=== PATIENT | female | born 1950 | race Hispanic/Latino ===

== ENCOUNTER 2018-04-09 12:07 | Inpatient (IN) | payer MEDICAID ==
[2018-04-09 19:10] VITALS: BMI 25.8
--- NOTE | 2018-04-10 00:32 | CP.PCM.HP ---
History of Present Illness - History of Present Illness History of Present Illness: PMD: Sanchez Zuniga MD Chief Complaint: Right facial palsy/slurred speech/Mechanical fall The Patient was seen and examined in the Rehab Unit HPI: The hx was obtained from the patient and after review of the medical records. She is a 67 years old female transferred from the [facility] to the [facility], for Continued care and rehabilitation. She has hx of HTN, HLD Recurrent CVA with right side weakness in 2013 and left side weakness in 2016 now with squeals. On this occasion she was admitted at the [facility] with slurred speech, right facial weakness and dizziness after a mechanical fall and diagnosed with Acute CVA with left side neurological findings. She still has dysarthria, word finding, numbness to the right face with weakness. The right upper extremity is numb. the right knee is tender to movement and palpation. PMH: CVA 2012 with right sided weakness; CVA 2016 with left lower extremity weakness persisting; HTN; HLD; CAD s/p Stent placement; sigmoid Polyps; Ascending Aortic Aneurysm; Right Pulmonary Nodules; Depression PSH: Tubal ligation; Right shoulder surgery; Tonsillectomy SH: Smokes Marijuana; No Alcohol; Smokes Cigar daily; Live alone; FH: States: No known family hx Allergies Medication: Reviewed Present on Admission - Present on Admission Any Indicators Present on Admission: No History of DVT/PE: No History of Uncontrolled Diabetes: No Urinary Catheter: No Decubitus Ulcer Present: No Review of Systems - Constitutional Constitutional: Weakness. absent: Headache, Lethargy - EENT Eyes: Requires Corrective Lenses. absent: Diplopia, Itchy Eyes Ears: Decreased Hearing. absent: Ear Discharge, Tinnitus Nose/Mouth/Throat: absent: Epistaxis, Nasal Congestion, Nasal Discharge, Sinus Pain, Sinus Pressure - Cardiovascular Cardiovascular: absent: Chest Pain, Dyspnea, Edema, Palpitations - Respiratory Respiratory: absent: Cough, Dyspnea, Wheezing, Stridor - Gastrointestinal Gastrointestinal: Constipation. absent: Abdominal Pain, Diarrhea, Nausea, Vomiting - Genitourinary Genitourinary: absent: Dysuria, Flank Pain, Urinary Frequency - Musculoskeletal Musculoskeletal: Arthralgias Additional comments: Pain to the right lower extremity - Integumentary Integumentary: absent: Skin Ulcer, Sores, Striae, Swelling - Neurological Neurological: Abnormal Gait, Abnormal Hearing, Abnormal Speech, Dizziness, Focal Weakness, Paresthesias, Weakness. absent: Confusion, Headaches - Psychiatric Psychiatric: Depression. absent: Anxiety, Panic Attacks - Endocrine Endocrine: absent: Palpitations, Polydipsia, Polyphagia, Polyuria - Hematologic/Lymphatic Hematologic: absent: Easy Bleeding, Easy Bruising Past Patient History - Past Medical History & Family History Past Medical History?: Yes - Past Social History Chewing Tobacco Use: No Cigar Use: No Alcohol: None Drugs: Cannabis Home Situation {Lives}: Alone - CARDIAC Hx Hypercholesterolemia: Yes Hx Hypertension: Yes Other/Comment: CAD s/p Stent X1 - PULMONARY Hx Respiratory Disorders: No - NEUROLOGICAL HX Cerebrovascular Accident: Yes (2012 and 2016) - HEENT Hx HEENT Problems: No - RENAL Hx Chronic Kidney Disease: No - ENDOCRINE/METABOLIC Hx Endocrine Disorders: No - HEMATOLOGICAL/ONCOLOGICAL Hx Blood Disorders: No - INTEGUMENTARY Hx Dermatological Problems: No - MUSCULOSKELETAL/RHEUMATOLOGICAL Hx Musculoskeletal Disorders: No - GASTROINTESTINAL Hx Gastrointestinal Disorders: No - GENITOURINARY/GYNECOLOGICAL Hx Genitourinary Disorders: No - PSYCHIATRIC Hx Depression: Yes - SURGICAL HISTORY Hx Tonsillectomy: Yes Hx Tubal Ligation: Yes Other/Comment: Right shoulder surgery - ANESTHESIA Hx Anesthesia: Yes Hx Anesthesia Reactions: No Meds Allergies/Adverse Reactions: Allergies Allergy/AdvReac Type Severity Reaction Status Date / Time No Known Allergies Allergy Verified 04/09/18 23:13 Physical Exam - Constitutional Appears: No Acute Distress - Head Exam Head Exam: ATRAUMATIC, NORMOCEPHALIC Additional comments: Right facial weakness. - Eye Exam Eye Exam: absent: EOMI, Normal appearance Additional comments: Left eye Ptosis, poor vision from the right eye - ENT Exam ENT Exam: Mucous Membranes Moist, Normal External Ear Exam - Neck Exam Neck exam: Positive for: Full Rom, Normal Inspection. Negative for: Lymphadenopathy, Tenderness - Respiratory Exam Respiratory Exam: Clear to Auscultation Bilateral. absent: Rales, Rhonchi, Wheezes - Cardiovascular Exam Cardiovascular Exam: REGULAR RHYTHM. absent: RRR, +S1, +S2 - GI/Abdominal Exam GI & Abdominal Exam: Normal Bowel Sounds, Soft. absent: Mass, Organomegaly, Tenderness - Rectal Exam Rectal Exam: Deferred - Extremities Exam Additional comments: Pain to the right knee and thigh. - Back Exam Back exam: NORMAL INSPECTION. absent: CVA tenderness (L), CVA tenderness (R) - Neurological Exam Neurological exam: Alert, Oriented x3 Additional comments: Right facial droop with tongue deviating to the right . decreased hearing on the right . Left eye ptosis with poor vision at the right eye. motor strength 2/5 at the right lower extremity. motor strength 5/5 at both upper extremities - Psychiatric Exam Psychiatric exam: Normal Affect, Normal Mood - Skin Skin Exam: Dry, Intact, Normal Color, Warm Results - Imaging and Cardiology CT scan - head Status: Report reviewed by me Additional comment: 04/08/21 Multiple chronic infarcts, including chronic posterior left occipital infarct which is new since the prior study. CT angio of head Status: Report reviewed by me Additional comment: 04/08/18 Multifocal intracranial atherosclerotic calcifications again seen. Involves the posterior cerebral arteries bilaterally where sites of severe focal stenosis are present. CT angio Neck Status: Report reviewed by me Additional comment: No evidence of large vessel occlusion of high grade stenosis involving the major arterial vessels of the neck with 0% stenosis at the IcA origin. 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 MRI - head Status: Report reviewed by me Additional comment: Subacute 1cm white matter infarction in the left العلي radiata. X-Ray right knee and hip Status: Report reviewed by me Additional comment: No Fracture Chest x-ray Status: Report reviewed by me Additional comment: 04/08/18 No acute disease Assessment & Plan - Assessment and Plan (Free Text) Assessment: #. Acute CVA #. HTN #. HLD #. depression #. Hx of CAD s/p LAD stent Plan: 67 years old female transferred from the [facility] to the [facility], for Continued care and rehabilitation. She has hx of HTN, HLD Recurrent CVA with right side weakness in 2013 and left side weakness in 2016 now with squeals. On this occasion she was admitted at the [facility] with slurred speech, right facial weakness and dizziness after a mechanical fall and diagnosed with Acute CVA with right side neurological findings. #. Acute CVA with dysarthria and right facial weakness, In patient with recurrent CVAs - Consult Physiatry Dr Orozco - OT/PT - Speech therapy - ASA - Plavix - Lipitor - Quit smoking/ no Marijuana nor Alcohol #. HTN - Amlodipine - Losartan - Follow Blood pressure #. HLD - Lipitor #. Depression - Wellbutrin #. Hx of CAD s/p LAD stent - ASA/Lipitor/Plavix #. DVT prophylaxis with Lovenox #. Code Status: Full - Date & Time Date: 04/10/18 Time: 00:32
[2018-04-10] MEDS ORDERED: Magnesium Hydroxide Susp 30 ml UD PO PRN (02:01)
[2018-04-10] MEDS ORDERED: Albuterol-Ipratrop 3 mg / 0.5 (3 ml) UD IH SCH (06:00)
[2018-04-10] MEDS: Pantoprazole 40 mg EC Tab PO SCH (06:17)
[2018-04-10 07:03] LABS: BASO # 0.1 K/uL (0.0-0.2); EOS # 0.2 K/uL (0.0-0.7); EOS % 3.5 % (0.0-4.0); HEMOGLOBIN 12.7 g/dL (12.0-16.0); LYMPH # 1.6 K/uL (1.0-4.3); LYMPH % 30.3 % (20.0-40.0); MEAN CELL VOLUME 83.5 fl (81.0-99.0); MEAN CORPUSCULAR HEMOGLOBIN 28.4 pg (27.0-31.0); MEAN PLATELET VOLUME 8.8 fl (7.2-11.7); MONO # 0.4 K/uL (0.0-0.8); MONO % 8.3 % (0.0-10.0); NEUT # 2.9 K/uL (1.8-7.0); NEUT % 55.9 % (50.0-75.0); NRBC % 0.1 % (0.0-0.0); RBC 4.47 Mil/uL (3.80-5.20); RED CELL DISTRIBUTION WIDTH 15.9 % (11.5-14.5); WHITE BLOOD COUNT 5.2 K/uL (4.8-10.8)
[2018-04-10 07:07] LABS: ALB/GLOB RATIO 1.4 (1.0-2.1); ALBUMIN 4.3 g/dL (3.5-5.0); ALT/SGPT 39 U/L (9-52); AST/SGOT 42 U/L (14-36); BLOOD UREA NITROGEN 8 mg/dl (7-17); CALCIUM 10.2 mg/dL (8.4-10.2); GFR AFRICAN-AMERICAN > 60; GFR NON-AFRICAN AMERICAN > 60
[2018-04-10 07:13] LABS: INR 1.1 (0.9-1.2); PARTIAL THROMBOPLASTIN TIME 36.9 Seconds (25.6-37.1); PROTHROMBIN TIME 12.1 Seconds (9.8-13.1)
[2018-04-10] MEDS: Albuterol-Ipratrop 3 mg / 0.5 (3 ml) UD IH SCH ×3 (07:14→19:23)
[2018-04-10] MEDS: Artificial Tears Opht Soln OU PRN (08:34)
[2018-04-10] MEDS: Aspirin 325 mg EC Tablets PO SCH (08:40)
[2018-04-10] MEDS: Enoxaparin 40 mg Syringe SC SCH (11:00)
--- NOTE | 2018-04-10 12:28 | CP.PCM.CON ---
History of Present Illness - History of Present Illness History of Present Illness: Psychiatry consult CC: Admitted to rehab for Right facial palsy/slurred speech/Mechanical fall; Depression HPI: 67 yo female transferred for [facility] [place] s/p acute CVA. Patient reports that she feels depressed due to her acute medical issues. She reports decreased appetite due to inability to taste food after having strokes. +Hopelessness +Anhedonia. She reports passive wishes that she were not alive , but denies active suicidal ideation/plan/intent. She does not recall what medications she was prescribed for depression and states that she has only been taking them since her admission to [facility]. PPHx: Denies h/o psychiatric admissions or suicide attempts PMH: CVA 2012 with right sided weakness; CVA 2016 with left lower extremity weakness persisting; HTN; HLD; CAD s/p Stent placement; sigmoid Polyps; Ascending Aortic Aneurysm; Right Pulmonary Nodules; Depression PSH: Tubal ligation; Right shoulder surgery; Tonsillectomy SH: Smokes Marijuana; No Alcohol; Smokes Cigar daily; Live alone FH: States: No known family hx Allergies: NKDA MSE: A + O x 3, calm, cooperative, psychomotor retarded due to physical limitations; speech slurred at times, mood "depressed", affect- constricted, thought process- linear/coherent, thought content- no delusions, NO AH/VH/SI/HI ; fair I/J Impression: 67 yo female s/p CVA, presents w/ major depressive disorder. She reports that she started treatment with antidepressants last week. -Would recommend to attempt treatment with monotherapy as this is her first time taking antidepressants (as per patient report). Would continue Zoloft 50 mg PO Daily and hold Wellbutrin. If patient does not improve after several weeks of treatment, can continue to titrate Zoloft. -No acute inpatient psychiatric admission indicated at this time Past Patient History - Past Medical History & Family History Past Medical History?: Yes - Past Social History Chewing Tobacco Use: No Cigar Use: No Alcohol: None Drugs: Cannabis Home Situation {Lives}: Alone - CARDIAC Hx Hypercholesterolemia: Yes Hx Hypertension: Yes Other/Comment: CAD s/p Stent X1 - PULMONARY Hx Respiratory Disorders: No - NEUROLOGICAL HX Cerebrovascular Accident: Yes (2012 and 2015) - HEENT Hx HEENT Problems: No - RENAL Hx Chronic Kidney Disease: No - ENDOCRINE/METABOLIC Hx Endocrine Disorders: No - HEMATOLOGICAL/ONCOLOGICAL Hx Blood Disorders: No - INTEGUMENTARY Hx Dermatological Problems: No - MUSCULOSKELETAL/RHEUMATOLOGICAL Hx Musculoskeletal Disorders: No - GASTROINTESTINAL Hx Gastrointestinal Disorders: No - GENITOURINARY/GYNECOLOGICAL Hx Genitourinary Disorders: No - PSYCHIATRIC Hx Depression: Yes - SURGICAL HISTORY Hx Tonsillectomy: Yes Hx Tubal Ligation: Yes Other/Comment: Right shoulder surgery - ANESTHESIA Hx Anesthesia: Yes Hx Anesthesia Reactions: No Meds Allergies/Adverse Reactions: Allergies Allergy/AdvReac Type Severity Reaction Status Date / Time No Known Allergies Allergy Verified 04/09/18 23:13 - Medications Medications: Current Medications Acetaminophen (Tylenol 325mg Tab) 325 mg PO Q6 PRN PRN Reason: Pain scale 1-10 Albuterol/Ipratropium (Duoneb 3 Mg/0.5 Mg (3 Ml) Ud) 3 ml IH RQ6 [facility] Last Admin: 04/10/18 07:14 Dose: 3 ml Artificial Tears (Artificial Tears) 2 drop OU HS PRN PRN Reason: Dry eyes Last Admin: 04/10/18 08:34 Dose: 2 drop Aspirin (Ecotrin) 325 mg PO DAILY [facility] Last Admin: 04/10/18 08:40 Dose: 325 mg Atorvastatin Calcium (Lipitor) 80 mg PO HS [facility] Bupropion HCl (Wellbutrin) 100 mg PO BID [facility] Last Admin: 04/10/18 08:40 Dose: 100 mg Clopidogrel Bisulfate (Plavix) 75 mg PO DAILY [facility] Last Admin: 04/10/18 08:40 Dose: 75 mg Enoxaparin Sodium (Lovenox) 40 mg SC DAILY [facility] PRN Reason: Protocol Losartan Potassium (Cozaar) 50 mg PO DAILY [facility] Last Admin: 04/10/18 08:39 Dose: 50 mg Magnesium Hydroxide (Milk Of Magnesia) 30 ml PO DAILY PRN PRN Reason: Constipation Ondansetron HCl (Zofran Tab) 4 mg PO Q8 PRN PRN Reason: Nausea/Vomiting Pantoprazole Sodium (Protonix Ec Tab) 40 mg PO 0630 [facility] Last Admin: 04/10/18 06:17 Dose: 40 mg Sennosides (Senokot Tab) 17.2 mg PO HS [facility] Sertraline HCl (Zoloft) 50 mg PO DAILY [facility] Last Admin: 04/10/18 08:41 Dose: 50 mg Results - Vital Signs Recent Vital Signs: Last Vital Signs Temp 97.3 F L 04/10/18 08:30 Pulse 74 04/10/18 08:39 Resp 18 04/10/18 08:30 BP 135/99 H 04/10/18 08:39 Pulse Ox 97 04/10/18 00:12 - Labs Result Diagrams: 04/10/18 06:30 04/10/18 06:30 Labs: Laboratory Results - last 24 hr 04/10/18 04/10/18 04/10/18 06:30 06:30 06:30 WBC 5.2 RBC 4.47 Hgb 12.7 Hct 37.4 MCV 83.5 MCH 28.4 MCHC 34.0 RDW 15.9 H Plt Count 216 MPV 8.8 Neut % (Auto) 55.9 Lymph % (Auto) 30.3 [place] % (Auto) 8.3 Eos % (Auto) 3.5 Baso % (Auto) 2.0 Neut # (Auto) 2.9 Lymph # (Auto) 1.6 [place] # (Auto) 0.4 Eos # (Auto) 0.2 Baso # (Auto) 0.1 PT 12.1 INR 1.1 APTT 36.9 Sodium 142 Potassium 3.5 L Chloride 107 Carbon Dioxide 25 Anion Gap 14 BUN 8 Creatinine 0.8 Est GFR ( Amer) > 60 Est GFR (Non-Af Amer) > 60 Random Glucose 114 H Calcium 10.2 Phosphorus 3.9 Magnesium 1.8 Total Bilirubin 0.9 AST 42 H ALT 39 Alkaline Phosphatase 91 Total Protein 7.5 Albumin 4.3 Globulin 3.2 Albumin/Globulin Ratio 1.4
[2018-04-10] MEDS ORDERED: Potassium Chloride 20 mEq ER Tab PO ONE (17:53)
--- NOTE | 2018-04-10 18:39 | CP.PCM.CON ---
History of Present Illness - History of Present Illness History of Present Illness: 67 year old female admitted with diagnosis of CVA with right sided weakness Review of Systems - Neurological Neurological: Abnormal Gait, Lack of Coordination, Weakness Past Patient History - Past Medical History & Family History Past Medical History?: Yes - Past Social History Chewing Tobacco Use: No Cigar Use: No Alcohol: None Drugs: Cannabis Home Situation {Lives}: Alone - CARDIAC Hx Cardiac Disorders: Yes Hx Hypercholesterolemia: Yes Hx Hypertension: Yes - PULMONARY Hx Respiratory Disorders: No - NEUROLOGICAL HX Cerebrovascular Accident: Yes - HEENT Hx HEENT Problems: No - RENAL Hx Chronic Kidney Disease: No - ENDOCRINE/METABOLIC Hx Endocrine Disorders: No - HEMATOLOGICAL/ONCOLOGICAL Hx Blood Disorders: No - INTEGUMENTARY Hx Dermatological Problems: No - MUSCULOSKELETAL/RHEUMATOLOGICAL Hx Musculoskeletal Disorders: No - GASTROINTESTINAL Hx Gastrointestinal Disorders: No - GENITOURINARY/GYNECOLOGICAL Hx Genitourinary Disorders: No - PSYCHIATRIC Hx Depression: Yes - SURGICAL HISTORY Hx Tonsillectomy: Yes Hx Tubal Ligation: Yes Other/Comment: Right shoulder surgery - ANESTHESIA Hx Anesthesia: Yes Hx Anesthesia Reactions: No Meds Allergies/Adverse Reactions: Allergies Allergy/AdvReac Type Severity Reaction Status Date / Time No Known Allergies Allergy Verified 04/09/18 23:13 - Medications Medications: Current Medications Acetaminophen (Tylenol 325mg Tab) 325 mg PO Q6 PRN PRN Reason: Pain scale 1-10 Albuterol/Ipratropium (Duoneb 3 Mg/0.5 Mg (3 Ml) Ud) 3 ml IH RQ6 [facility] Last Admin: 04/10/18 13:17 Dose: Not Given Artificial Tears (Artificial Tears) 2 drop OU HS PRN PRN Reason: Dry eyes Last Admin: 04/10/18 08:34 Dose: 2 drop Aspirin (Ecotrin) 325 mg PO DAILY [facility] Last Admin: 04/10/18 08:40 Dose: 325 mg Atorvastatin Calcium (Lipitor) 80 mg PO HS [facility] Clopidogrel Bisulfate (Plavix) 75 mg PO DAILY [facility] Last Admin: 04/10/18 08:40 Dose: 75 mg Enoxaparin Sodium (Lovenox) 40 mg SC DAILY [facility] PRN Reason: Protocol Last Admin: 04/10/18 11:00 Dose: 40 mg Losartan Potassium (Cozaar) 50 mg PO DAILY [facility] Last Admin: 04/10/18 08:39 Dose: 50 mg Magnesium Hydroxide (Milk Of Magnesia) 30 ml PO DAILY PRN PRN Reason: Constipation Ondansetron HCl (Zofran Tab) 4 mg PO Q8 PRN PRN Reason: Nausea/Vomiting Pantoprazole Sodium (Protonix Ec Tab) 40 mg PO 0630 [facility] Last Admin: 04/10/18 06:17 Dose: 40 mg Sennosides (Senokot Tab) 17.2 mg PO [facility] Sertraline HCl (Zoloft) 50 mg PO DAILY [facility] Last Admin: 04/10/18 08:41 Dose: 50 mg Physical Exam - Head Exam Head Exam: ATRAUMATIC, NORMAL INSPECTION, NORMOCEPHALIC - Eye Exam Eye Exam: EOMI, Normal appearance Pupil Exam: NORMAL ACCOMODATION, PERRL Additional comments: right facial muscle weakness - ENT Exam ENT Exam: Mucous Membranes Moist, Normal Exam - Neck Exam Neck exam: Positive for: Normal Inspection - Respiratory Exam Respiratory Exam: Clear to Auscultation Bilateral, NORMAL BREATHING PATTERN - Cardiovascular Exam Cardiovascular Exam: REGULAR RHYTHM - GI/Abdominal Exam GI & Abdominal Exam: Normal Bowel Sounds, Soft - Rectal Exam Rectal Exam: NORMAL INSPECTION - Exam External exam: NORMAL EXTERNAL EXAM - Extremities Exam Extremities exam: Positive for: normal inspection Additional comments: right upper and lower extremity weakness - Back Exam Back exam: NORMAL INSPECTION - Neurological Exam Neurological exam: Alert, Reflexes Normal Additional comments: facial nerve lesion - Psychiatric Exam Psychiatric exam: Normal Affect - Skin Skin Exam: Dry, Normal Color Results - Vital Signs Recent Vital Signs: Last Vital Signs Temp 97.3 F L 04/10/18 08:30 Pulse 74 04/10/18 08:39 Resp 18 04/10/18 08:30 BP 135/99 H 04/10/18 08:39 Pulse Ox 97 04/10/18 00:12 - Labs Result Diagrams: 04/10/18 06:30 04/10/18 06:30 Labs: Laboratory Results - last 24 hr 04/10/18 04/10/18 04/10/18 06:30 06:30 06:30 WBC 5.2 RBC 4.47 Hgb 12.7 Hct 37.4 MCV 83.5 MCH 28.4 MCHC 34.0 RDW 15.9 H Plt Count 216 MPV 8.8 Neut % (Auto) 55.9 Lymph % (Auto) 30.3 [place] % (Auto) 8.3 Eos % (Auto) 3.5 Baso % (Auto) 2.0 Neut # (Auto) 2.9 Lymph # (Auto) 1.6 [place] # (Auto) 0.4 Eos # (Auto) 0.2 Baso # (Auto) 0.1 PT 12.1 INR 1.1 APTT 36.9 Sodium 142 Potassium 3.5 L Chloride 107 Carbon Dioxide 25 Anion Gap 14 BUN 8 Creatinine 0.8 Est GFR ( Amer) > 60 Est GFR (Non-Af Amer) > 60 Random Glucose 114 H Calcium 10.2 Phosphorus 3.9 Magnesium 1.8 Total Bilirubin 0.9 AST 42 H ALT 39 Alkaline Phosphatase 91 Total Protein 7.5 Albumin 4.3 Globulin 3.2 Albumin/Globulin Ratio 1.4 Assessment & Plan (1) CVA (cerebral vascular accident) Assessment and Plan: also with diagnosis of HTn, HLD,asthma, CAd, NV plan for Physical, oocupational therapy , speech and rec therapy to write overall plan of care covering for Dr Orozco Status: Acute
--- NOTE | 2018-04-10 18:45 | PCM.OPOC ---
Physiatry Overall Plan of Care - Overall Plan of Care Estimated Length of Stay in Weeks: 3 Rehab Impairment: Mobility, Gait, Cognition, Balance, Coordination Etiologic Diagnosis: Cerebrovascular Accident - Anticipated Interventions Physical Therapy:: Yes Occupational Therapy:: Yes Speech Therapy:: Yes Recreational Therapy:: Yes - Therapy Goals Bed Mobility: Independent Ambulation: Independent Functional Positional Changes:: Independent - Functional Outcomes Functional Outcomes: fair - Discharge Plan Identification of Barriers to Discharge: Home Situation Discharge Destination: Home
[2018-04-11] MEDS: Albuterol-Ipratrop 3 mg / 0.5 (3 ml) UD IH SCH ×4 (01:03→19:52)
[2018-04-11] MEDS: Pantoprazole 40 mg EC Tab PO SCH (05:53)
[2018-04-11] MEDS: Enoxaparin 40 mg Syringe SC SCH (08:51)
[2018-04-11] MEDS: Artificial Tears Opht Soln OU PRN (08:51)
[2018-04-11] MEDS: Aspirin 325 mg EC Tablets PO SCH (08:52)
[2018-04-12] MEDS: Albuterol-Ipratrop 3 mg / 0.5 (3 ml) UD IH SCH ×4 (01:00→19:07)
[2018-04-12 07:21] LABS: BLOOD UREA NITROGEN 9 mg/dl (7-17); CALCIUM 9.8 mg/dL (8.4-10.2); GFR AFRICAN-AMERICAN > 60; GFR NON-AFRICAN AMERICAN > 60
[2018-04-12] MEDS: Pantoprazole 40 mg EC Tab PO SCH (07:35)
[2018-04-12] MEDS: Artificial Tears Opht Soln OU PRN (08:58)
[2018-04-12] MEDS: Enoxaparin 40 mg Syringe SC SCH (08:59)
[2018-04-12] MEDS: Aspirin 325 mg EC Tablets PO SCH (08:59)
--- NOTE | 2018-04-12 09:08 | RAD ---
PROCEDURE: Right Knee Radiographs. HISTORY: c/o discomfort on right knee COMPARISON: None. FINDINGS: BONES: No evidence of acute fracture or destructive bony lesion. JOINTS: Mild osteoarthritic changes noted. JOINT EFFUSION: No evidence of significant joint effusion OTHER FINDINGS: Vascular calcification and mild soft tissue swelling noted. IMPRESSION: Mild osteoarthritic changes. No evidence of acute fracture or dislocation.
--- NOTE | 2018-04-12 15:54 | CP.PCM.PN ---
Subjective - Date & Time of Evaluation Date of Evaluation: 04/11/18 Time of Evaluation: 10:00 - Subjective Subjective: no acute complaint at present Objective - Vital Signs/Intake and Output Vital Signs (last 24 hours): Temp Pulse Resp BP Pulse Ox 97.1 F L 89 20 132/95 H 100 04/12/18 08:00 04/12/18 08:59 04/12/18 08:00 04/12/18 08:59 04/12/18 08:00 - Medications Medications: Current Medications Acetaminophen (Tylenol 325mg Tab) 650 mg PO Q6 PRN PRN Reason: Pain scale 1-10 Last Admin: 04/10/18 21:21 Dose: 650 mg Albuterol/Ipratropium (Duoneb 3 Mg/0.5 Mg (3 Ml) Ud) 3 ml IH RQ6 [facility] Last Admin: 04/12/18 14:52 Dose: Not Given Artificial Tears (Artificial Tears) 2 drop OU HS PRN PRN Reason: Dry eyes Last Admin: 04/12/18 08:58 Dose: 2 drop Aspirin (Ecotrin) 325 mg PO DAILY [facility] Last Admin: 04/12/18 08:59 Dose: 325 mg Atorvastatin Calcium (Lipitor) 80 mg PO HS [facility] Last Admin: 04/11/18 21:30 Dose: 80 mg Clopidogrel Bisulfate (Plavix) 75 mg PO DAILY [facility] Last Admin: 04/12/18 08:59 Dose: 75 mg Enoxaparin Sodium (Lovenox) 40 mg SC DAILY [facility] PRN Reason: Protocol Last Admin: 04/12/18 08:59 Dose: 40 mg Losartan Potassium (Cozaar) 50 mg PO DAILY [facility] Last Admin: 04/12/18 08:59 Dose: 50 mg Magnesium Hydroxide (Milk Of Magnesia) 30 ml PO DAILY PRN PRN Reason: Constipation Ondansetron HCl (Zofran Tab) 4 mg PO Q8 PRN PRN Reason: Nausea/Vomiting Pantoprazole Sodium (Protonix Ec Tab) 40 mg PO 0630 [facility] Last Admin: 04/12/18 07:35 Dose: 40 mg Sennosides (Senokot Tab) 17.2 mg PO HS [facility] Last Admin: 04/11/18 21:33 Dose: 17.2 mg Sertraline HCl (Zoloft) 50 mg PO DAILY [facility] Last Admin: 04/12/18 09:00 Dose: 50 mg - Labs Labs: 04/10/18 06:30 04/12/18 05:30 PT 12.1 Seconds (9.8-13.1) 04/10/18 06:30 INR 1.1 (0.9-1.2) 04/10/18 06:30 APTT 36.9 Seconds (25.6-37.1) 04/10/18 06:30 - Head Exam Head Exam: ATRAUMATIC, NORMAL INSPECTION, NORMOCEPHALIC - Eye Exam Eye Exam: EOMI, Normal appearance Pupil Exam: NORMAL ACCOMODATION, PERRL - ENT Exam ENT Exam: Mucous Membranes Moist, Normal Exam - Neck Exam Neck Exam: Full ROM, Normal Inspection - Respiratory Exam Respiratory Exam: Clear to Ausculation Bilateral, NORMAL BREATHING PATTERN - Cardiovascular Exam Cardiovascular Exam: REGULAR RHYTHM - GI/Abdominal Exam GI & Abdominal Exam: Soft, Normal Bowel Sounds - Rectal Exam Rectal Exam: NORMAL INSPECTION - Exam External exam: NORMAL EXTERNAL EXAM - Extremities Exam Extremities Exam: Full ROM, Normal Capillary Refill, Normal Inspection - Back Exam Back Exam: NORMAL INSPECTION - Neurological Exam Neurological Exam: Alert, Awake Neuro motor strength exam: Right Upper Extremity: 3, Right Lower Extremity: 3 - Psychiatric Exam Psychiatric exam: Normal Affect, Normal Mood - Skin Skin Exam: Dry, Normal Color Assessment and Plan (1) CVA (cerebral vascular accident) Assessment & Plan: plan for physical, occupational, rec and speech therapy for range of motion, strengthening, transfers and gait training Status: Acute
[2018-04-13] MEDS: Albuterol-Ipratrop 3 mg / 0.5 (3 ml) UD IH SCH ×5 (01:08→19:11)
[2018-04-13 06:24] LABS: HEMOGLOBIN 11.7 g/dL (12.0-16.0); MEAN CELL VOLUME 84.5 fl (81.0-99.0); MEAN CORPUSCULAR HGB CONC 34.3 g/dL (33.0-37.0); RBC 4.05 Mil/uL (3.80-5.20); WHITE BLOOD COUNT 4.5 K/uL (4.8-10.8)
[2018-04-13] MEDS: Pantoprazole 40 mg EC Tab PO SCH (06:50)
[2018-04-13] MEDS: Aspirin 325 mg EC Tablets PO SCH (08:14)
[2018-04-13] MEDS: Enoxaparin 40 mg Syringe SC SCH (08:14)
--- NOTE | 2018-04-13 12:24 | CP.PCM.PN ---
Subjective - Date & Time of Evaluation Date of Evaluation: 04/13/18 Time of Evaluation: 12:30 - Subjective Subjective: Patient seen and examined . Sitting in chair in NAD. With flat affect.Complains of complete sensory loss to her right side, taste loss, and uncontrolled tremors to her upper extremities and lower extremities Participating with PT. Hemodynamically stable, afebrile. No acute issues overnight. Objective - Vital Signs/Intake and Output Vital Signs (last 24 hours): Temp Pulse Resp BP Pulse Ox 98.1 F 79 18 153/56 H 99 04/13/18 07:51 04/13/18 08:14 04/13/18 07:51 04/13/18 08:14 04/12/18 20:00 - Medications Medications: Current Medications Acetaminophen (Tylenol 325mg Tab) 650 mg PO Q6 PRN PRN Reason: Pain scale 1-10 Last Admin: 04/10/18 21:21 Dose: 650 mg Albuterol/Ipratropium (Duoneb 3 Mg/0.5 Mg (3 Ml) Ud) 3 ml IH RQ6 [facility] Last Admin: 04/13/18 08:15 Dose: Not Given Artificial Tears (Artificial Tears) 2 drop OU HS PRN PRN Reason: Dry eyes Last Admin: 04/12/18 08:58 Dose: 2 drop Aspirin (Ecotrin) 325 mg PO DAILY [facility] Last Admin: 04/13/18 08:14 Dose: 325 mg Atorvastatin Calcium (Lipitor) 80 mg PO HS [facility] Last Admin: 04/12/18 21:38 Dose: 80 mg Clopidogrel Bisulfate (Plavix) 75 mg PO DAILY [facility] Last Admin: 04/13/18 08:14 Dose: 75 mg Enoxaparin Sodium (Lovenox) 40 mg SC DAILY [facility] PRN Reason: Protocol Last Admin: 04/13/18 08:14 Dose: 40 mg Losartan Potassium (Cozaar) 50 mg PO DAILY [facility] Last Admin: 04/13/18 08:14 Dose: 50 mg Magnesium Hydroxide (Milk Of Magnesia) 30 ml PO DAILY PRN PRN Reason: Constipation Ondansetron HCl (Zofran Tab) 4 mg PO Q8 PRN PRN Reason: Nausea/Vomiting Pantoprazole Sodium (Protonix Ec Tab) 40 mg PO 0630 [facility] Last Admin: 04/13/18 06:50 Dose: 40 mg Sennosides (Senokot Tab) 17.2 mg PO HS [facility] Last Admin: 04/12/18 21:39 Dose: Not Given Sertraline HCl (Zoloft) 50 mg PO DAILY [facility] Last Admin: 04/13/18 08:14 Dose: 50 mg - Labs Labs: 04/13/18 05:25 04/12/18 05:30 PT 12.1 Seconds (9.8-13.1) 04/10/18 06:30 INR 1.1 (0.9-1.2) 04/10/18 06:30 APTT 36.9 Seconds (25.6-37.1) 04/10/18 06:30 - Constitutional Appears: Non-toxic, No Acute Distress, Chronically Ill - Head Exam Head Exam: ATRAUMATIC, NORMAL INSPECTION, NORMOCEPHALIC - Eye Exam Eye Exam: Normal appearance, PERRL - ENT Exam ENT Exam: Mucous Membranes Moist, Normal Exam - Neck Exam Neck Exam: Normal Inspection - Respiratory Exam Respiratory Exam: Clear to Ausculation Bilateral, NORMAL BREATHING PATTERN. absent: Rhonchi, Wheezes - Cardiovascular Exam Cardiovascular Exam: REGULAR RHYTHM, RRR, +S1, +S2. absent: JVD - GI/Abdominal Exam GI & Abdominal Exam: Soft, Normal Bowel Sounds. absent: Distended, Guarding, Tenderness, Rebound - Rectal Exam Rectal Exam: Deferred - Extremities Exam Extremities Exam: Normal Capillary Refill, Normal Inspection. absent: Calf Tenderness, Pedal Edema - Back Exam Back Exam: NORMAL INSPECTION - Neurological Exam Neurological Exam: Alert, Awake Additional comments: right side sensory loss right facial droop resting tremors - Psychiatric Exam Psychiatric exam: Flat Affect - Skin Skin Exam: Dry, Intact, Normal Color, Warm Assessment and Plan - Assessment and Plan (Free Text) Assessment: 67 years old female transferred from the [facility], for Continued care and rehabilitation. She has hx of HTN, HLD Recurrent CVA with right side weakness in 2012 and left side weakness in 2016 On this occasion she was admitted at the [facility] with slurred speech, right facial weakness and dizziness after a mechanical fall and diagnosed with Acute CVA with right side neurological findings. At present complains of sensory loss on right side and lack of taste 1. Acute CVA with dysarthria and right facial weakness--recurrent CVAs Continue PT/T/speech therapy Physiatry consult with Dr Orozco on board Continue ASa, plavix, statin BP control call neuro eval with for uncontrolled tremors 2. HTN controlled on Amlodipine,Losartan 3. HLD Lipitor 4. Depression on zoloft 5. Hx of CAD s/p LAD stent on ASA/Lipitor/Plavix 6. DVT prophylaxis Lovenox
[2018-04-13] MEDS ORDERED: Nasal Spray(Ocean spray) NAS PRN (21:05)
[2018-04-14] MEDS: Albuterol-Ipratrop 3 mg / 0.5 (3 ml) UD IH SCH ×4 (01:00→19:35)
[2018-04-14] MEDS: Pantoprazole 40 mg EC Tab PO SCH (06:06)
[2018-04-14] MEDS: Enoxaparin 40 mg Syringe SC SCH (08:09)
[2018-04-14] MEDS: Aspirin 325 mg EC Tablets PO SCH (08:10)
--- NOTE | 2018-04-14 12:34 | CP.PCM.PN ---
Subjective - Date & Time of Evaluation Date of Evaluation: 04/14/18 Time of Evaluation: 12:34 - Subjective Subjective: pt participating in PT well no complaints no cp, sob, calf tenderness hd stable nad Objective - Vital Signs/Intake and Output Vital Signs (last 24 hours): Temp Pulse Resp BP Pulse Ox 98.1 F 69 20 135/92 H 96 04/14/18 09:00 04/14/18 09:00 04/14/18 09:00 04/14/18 09:00 04/13/18 20:30 Intake and Output: Vitals Reviewed GEN: WDWN, alert, cooperative HEENT: NCAT, PERRL, EOMI HEART: RRR, +S1S2, NO MRG LUNG: CTAB, NO WRR ABD: soft, NT, ND, No HSM, No masses EXT: normal pedal pulses, normal capillary refill NEURO: awake, alert SKIN: warm, dry PSYCH: normal mood, normal affect - Medications Medications: Current Medications Acetaminophen (Tylenol 325mg Tab) 650 mg PO Q6 PRN PRN Reason: Pain scale 1-10 Last Admin: 04/10/18 21:21 Dose: 650 mg Albuterol/Ipratropium (Duoneb 3 Mg/0.5 Mg (3 Ml) Ud) 3 ml IH RQ6 [facility] Last Admin: 04/14/18 07:24 Dose: Not Given Artificial Tears (Artificial Tears) 2 drop OU HS PRN PRN Reason: Dry eyes Last Admin: 04/12/18 08:58 Dose: 2 drop Aspirin (Ecotrin) 325 mg PO DAILY [facility] Last Admin: 04/14/18 08:10 Dose: 325 mg Atorvastatin Calcium (Lipitor) 80 mg PO HS [facility] Last Admin: 04/13/18 21:15 Dose: 80 mg Clopidogrel Bisulfate (Plavix) 75 mg PO DAILY [facility] Last Admin: 04/14/18 08:13 Dose: 75 mg Enoxaparin Sodium (Lovenox) 40 mg SC DAILY [facility] PRN Reason: Protocol Last Admin: 04/14/18 08:09 Dose: 40 mg Losartan Potassium (Cozaar) 50 mg PO DAILY [facility] Last Admin: 04/14/18 08:10 Dose: 50 mg Magnesium Hydroxide (Milk Of Magnesia) 30 ml PO DAILY PRN PRN Reason: Constipation Ondansetron HCl (Zofran Tab) 4 mg PO Q8 PRN PRN Reason: Nausea/Vomiting Pantoprazole Sodium (Protonix Ec Tab) 40 mg PO 0630 [facility] Last Admin: 04/14/18 06:06 Dose: 40 mg Sennosides (Senokot Tab) 17.2 mg PO HS [facility] Last Admin: 04/13/18 21:16 Dose: Not Given Sertraline HCl (Zoloft) 50 mg PO DAILY [facility] Last Admin: 04/14/18 08:13 Dose: 50 mg Sodium Chloride ([place] Nasal [place]) 2 sprays ELSIE Q4 PRN PRN Reason: Nasal congestion Last Admin: 04/13/18 21:49 Dose: 2 spr - Labs Labs: 04/13/18 05:25 04/12/18 05:30 PT 12.1 Seconds (9.8-13.1) 04/10/18 06:30 INR 1.1 (0.9-1.2) 04/10/18 06:30 APTT 36.9 Seconds (25.6-37.1) 04/10/18 06:30 Assessment and Plan - Assessment and Plan (Free Text) Plan: 67 years old female transferred from the [facility] to the [facility], for Continued care and rehabilitation. She has hx of HTN, HLD Recurrent CVA with right side weakness in 2012 and left side weakness in 2016 On this occasion she was admitted at the [facility] with slurred speech, right facial weakness and dizziness after a mechanical fall and diagnosed with Acute CVA with right side neurological findings. At present complains of sensory loss on right side and lack of taste 1. Acute CVA with dysarthria and right facial weakness--recurrent CVAs Continue PT/T/speech therapy Physiatry consult with Dr Orozco on board Continue ASA, plavix, statin BP control Neuro eval with for uncontrolled tremors 2. HTN controlled on Amlodipine, Losartan 3. HLD Lipitor 4. Depression on zoloft 5. Hx of CAD s/p LAD stent on ASA/Lipitor/Plavix 6. DVT prophylaxis Lovenox
--- NOTE | 2018-04-14 13:23 | PSY.TMCNF ---
Nursing - Vital Signs Vital Signs (Last 8 hours): Vital Signs 04/14/18 04/14/18 04/14/18 08:02 08:10 09:00 Temperature 98.1 F 98.1 F Pulse Rate 69 69 69 Respiratory 20 20 Rate Blood Pressure 135/92 H 135/92 H 135/92 H Pain: 0 - Medications/Other Issues Comment: Hand tremors, Emotional - Consults Comment: Dr. Otero, Dr. Orozco - Toileting Toileting: Contact Guard - Bladder Management Bladder Pattern: Normal Voiding Method: Toilet Bladder Management: Supervision - Bowel Management Bowel Pattern: Normal Bowel Management: Supervision - Transfers Transfers: Contact Guard - ADL's ADL's: Minimal Assistance - Pain Management Comments: Denies pain - Patient/Family Teaching Comments: Safety, Post CVA care - Goals/Time Frame Comments: Per multidiscplinary team Physical Therapy - Bed Mobility Bed Mobility: Contact Guard - Transfers Wheelchair to Mat: Verbal Cues, Contact Guard Sit to Stand: Verbal Cues, Contact Guard - Ambulation Level of Assistance: Verbal Cues, Contact Guard Distance (ft.): 120 Assistive Devices: Rolling Walker - Stair Negotiation Stairs: Level of Assistance: Verbal Cues, Contact Guard, Minimal Assistance Number of Stairs: 6 Handrails: Bilateral - Standing Balance Static Stand: Contact Guard Assist Dynamic Stand: Minimal Assistance - Pain Pain (assessed during therapy session): 3 Management Techniques: Distraction, Relaxation Techniques, Inactivity Comment: R knee - Insight/Carryover Insight/Carryover: Good - Patient/Family Education Comment: CVA recovery, safety - Assessment/Plan Assessment: Pt is agreeable to participate in 1:1 and group recreation therapy sessions. Pt has participated in modified jen card task and required mod verbal cues for carryover of task rules and error recognition. Pt participated in 5 second rule task and demonstrated improved recalling facts on demand with extended time. Pt participates in dominoes task with mod I. Pt's mood is stable- positive although flat at times. Pt will continue to benefit from participating in recreation therapy sessions throughout stay on unit. - Goals Timeframe: 2 weeks Goals: Mod I functional transfers. mod I bathing/dressing. mod I grooming. mod I toileting tasks - Provider Therapist: c License Number: [id number] Occupational Therapy - Arousal/Attention/Orientation Patient Orientation: Person, Place, Time, Appropriate to Age, Appropriate to Situation - ADL/IADL Self Feeding: Supervision, Set-up Help Grooming: Set-up Help, Contact Guard Dressing-Upper Extremity: Verbal Cues, Set-up Help, Contact Guard Dressing-Lower Extremity: Minimal Assistance - Sitting Balance Static Sitting: Supervision Dynamic Sitting: Requires supervision - Transfers Wheelchair to Bed Transfers: Contact Guard, Minimal Assistance Toilet Transfers: Contact Guard, Minimal Assistance - Upper Extremity Status Right Upper Extremity Comment: diminished sensation R UE Left Upper Extremity Comment: (L) active shoulder flexion is limited; however is functional. - Pain Pain (assessed during therapy session): 3 Alleviating Techniques: Distraction, Relaxation Techniques, Inactivity Comment: R knee - Insight/Carryover Insight/Carryover: Good - Patient/Family Education Comment: CVA recovery, safety - Assessment/Plan Assessment: Pt is agreeable to participate in 1:1 and group recreation therapy sessions. Pt has participated in modified jen card task and required mod verbal cues for carryover of task rules and error recognition. Pt participated in 5 second rule task and demonstrated improved recalling facts on demand with extended time. Pt participates in dominoes task with mod I. Pt's mood is stable- positive although flat at times. Pt will continue to benefit from participating in recreation therapy sessions throughout stay on unit. - Goals Timeframe: 2 weeks Goals: Mod I functional transfers. mod I bathing/dressing. mod I grooming. mod I toileting tasks - Provider Therapist: SHIREEN Singletary License Number: [id number] Speech Therapy - Consult Information Patient on Program: Yes Medical Diagnosis: CVA Treatment Diagnosis: -mild to moderate dysarthria. -mild expressive language - Assessment Expressive Language Impairment: Mild Speech/Articulation Impairment: Moderate - Plan Assessment: Pt is agreeable to participate in 1:1 and group recreation therapy sessions. Pt has participated in modified jen card task and required mod verbal cues for carryover of task rules and error recognition. Pt participated in 5 second rule task and demonstrated improved recalling facts on demand with extended time. Pt participates in dominoes task with mod I. Pt's mood is stable- positive although flat at times. Pt will continue to benefit from participating in recreation therapy sessions throughout stay on unit. - Provider Therapist: Kate Obrien License Number: [id number] Recreational Therapy - Participation Participation: Participates in Individual and/or Group Sessions - Attendance Attendance: 3-5 times per week - Activities Leisure Activities: Cards and Games - Socialization Level of Socialization: Initiates/interacts freely with care givers and peer - Assessment Assessment/Plan: Pt is agreeable to participate in 1:1 and group recreation therapy sessions. Pt has participated in modified jen card task and required mod verbal cues for carryover of task rules and error recognition. Pt participated in 5 second rule task and demonstrated improved recalling facts on demand with extended time. Pt participates in dominoes task with mod I. Pt's mood is stable-positive although flat at times. Pt will continue to benefit from participating in recreation therapy sessions throughout stay on unit. Problems Currently Limiting Participation: decrease sensation, blurry vision, decrease leisure awarenss level, impaired direction following Goals and Time Frame: Pt will be encouraged to participate in 1:1 and group recreation therapy sessions 3-5x week to improve activity tolerance level, strength in hands, visual scanning, direction following, attention to task, and arousal level. - Provider Therapist: Ofe No, [employer]ING [employer]ICATION[employer] MANAGER #[id number] Nutrition - Current Diet Current Diet/ Supplement/ Feedings: 2 gram Na diet ensure plus 8 ounces 1 per day(350 kcal and 13 grams of protein) - Appetite Percent Meal Consumed: 75-100% - Comments Comments: Safety, Post CVA care - Assessment/Goals/Time Frame Assessment/Goals/Time Frame: Hand tremors, Emotional - Provider Provider: Anna Reina RD Case Management - Discharge Plan Discharge Plan: Home alone Rehabilitation Plan - Treatment Plan Treatment Plan: Physical Therapy, Occupational Therapy, Speech, Dietary, Patient /Family Education - Discharge Plan Estimated Date of Discharge: 04/24/18 Discharge to: Home
--- NOTE | 2018-04-14 13:50 | CP.PCM.PN ---
Subjective - Date & Time of Evaluation Date of Evaluation: 04/14/18 Time of Evaluation: 13:49 - Subjective Subjective: Patient seen in the room notes difficulty with speech and dexterity she is very happy that her ambulation has already improved somewhat continue current care Objective - Vital Signs/Intake and Output Vital Signs (last 24 hours): Temp Pulse Resp BP Pulse Ox 98.1 F 69 20 135/92 H 96 04/14/18 09:00 04/14/18 09:00 04/14/18 09:00 04/14/18 09:00 04/13/18 20:30 - Medications Medications: Current Medications Acetaminophen (Tylenol 325mg Tab) 650 mg PO Q6 PRN PRN Reason: Pain scale 1-10 Last Admin: 04/10/18 21:21 Dose: 650 mg Albuterol/Ipratropium (Duoneb 3 Mg/0.5 Mg (3 Ml) Ud) 3 ml IH RQ6 [facility] Last Admin: 04/14/18 13:08 Dose: Not Given Artificial Tears (Artificial Tears) 2 drop OU HS PRN PRN Reason: Dry eyes Last Admin: 04/12/18 08:58 Dose: 2 drop Aspirin (Ecotrin) 325 mg PO DAILY [facility] Last Admin: 04/14/18 08:10 Dose: 325 mg Atorvastatin Calcium (Lipitor) 80 mg PO HS [facility] Last Admin: 04/13/18 21:15 Dose: 80 mg Clopidogrel Bisulfate (Plavix) 75 mg PO DAILY [facility] Last Admin: 04/14/18 08:13 Dose: 75 mg Enoxaparin Sodium (Lovenox) 40 mg SC DAILY [facility] PRN Reason: Protocol Last Admin: 04/14/18 08:09 Dose: 40 mg Losartan Potassium (Cozaar) 50 mg PO DAILY [facility] Last Admin: 04/14/18 08:10 Dose: 50 mg Magnesium Hydroxide (Milk Of Magnesia) 30 ml PO DAILY PRN PRN Reason: Constipation Ondansetron HCl (Zofran Tab) 4 mg PO Q8 PRN PRN Reason: Nausea/Vomiting Pantoprazole Sodium (Protonix Ec Tab) 40 mg PO 0630 [facility] Last Admin: 04/14/18 06:06 Dose: 40 mg Sennosides (Senokot Tab) 17.2 mg PO HS [facility] Last Admin: 04/13/18 21:16 Dose: Not Given Sertraline HCl (Zoloft) 50 mg PO DAILY [facility] Last Admin: 04/14/18 08:13 Dose: 50 mg Sodium Chloride ([place] Nasal [place]) 2 sprays ELSIE Q4 PRN PRN Reason: Nasal congestion Last Admin: 04/13/18 21:49 Dose: 2 spr - Labs Labs: 04/13/18 05:25 04/12/18 05:30 PT 12.1 Seconds (9.8-13.1) 04/10/18 06:30 INR 1.1 (0.9-1.2) 04/10/18 06:30 APTT 36.9 Seconds (25.6-37.1) 04/10/18 06:30
[2018-04-14] MEDS: Bismuth Subsalicylate 262 mg Chew Tab PO PRN (17:25)
--- NOTE | 2018-04-14 18:23 | CP.PCM.CON ---
History of Present Illness - History of Present Illness History of Present Illness: 67 yr old woman who has a history of prior stroke in 2013, is admitted to rehab after having a lt. العلي radiata stroke several weeks ago, and had complete stroke workup in [facility]. Echo was done, that showed normal EF, MRI brain showed small left العلي radiata stroke, and she has a history of hypertension. It is likely that this new event may be related to hypertension,and not an embolic phenomenon. Today, Miss carroll appears to have a right sided tremor and is weak on her right arm, with some dysarthria. She denies headache, or generalized weakness. PMH/PSH: HLD, CAD FH/SH: 1 ppd for many years, marijuana. All: nkda on exam: aaox3. PERRL. CN 2-12 normal. Right sided weakness 3/5, left sided weakness is 4/5 sensory: decreased ft, pin right arm. +2 dtr ul and ll bl. Toes downgoing no clonus. Past Patient History - Past Medical History & Family History Past Medical History?: Yes - Past Social History Chewing Tobacco Use: No Cigar Use: No Alcohol: None Drugs: Cannabis Home Situation {Lives}: Alone - CARDIAC Hx Cardiac Disorders: Yes Hx Hypercholesterolemia: Yes Hx Hypertension: Yes - PULMONARY Hx Respiratory Disorders: No - NEUROLOGICAL HX Cerebrovascular Accident: Yes - HEENT Hx HEENT Problems: No - RENAL Hx Chronic Kidney Disease: No - ENDOCRINE/METABOLIC Hx Endocrine Disorders: No - HEMATOLOGICAL/ONCOLOGICAL Hx Blood Disorders: No - INTEGUMENTARY Hx Dermatological Problems: No - MUSCULOSKELETAL/RHEUMATOLOGICAL Hx Musculoskeletal Disorders: No - GASTROINTESTINAL Hx Gastrointestinal Disorders: No - GENITOURINARY/GYNECOLOGICAL Hx Genitourinary Disorders: No - PSYCHIATRIC Hx Depression: Yes - SURGICAL HISTORY Hx Tonsillectomy: Yes Hx Tubal Ligation: Yes Other/Comment: Right shoulder surgery - ANESTHESIA Hx Anesthesia: Yes Hx Anesthesia Reactions: No Meds Allergies/Adverse Reactions: Allergies Allergy/AdvReac Type Severity Reaction Status Date / Time No Known Allergies Allergy Verified 04/09/18 23:13 - Medications Medications: Current Medications Acetaminophen (Tylenol 325mg Tab) 650 mg PO Q6 PRN PRN Reason: Pain scale 1-10 Last Admin: 04/10/18 21:21 Dose: 650 mg Albuterol/Ipratropium (Duoneb 3 Mg/0.5 Mg (3 Ml) Ud) 3 ml IH RQ6 [facility] Last Admin: 04/14/18 13:08 Dose: Not Given Artificial Tears (Artificial Tears) 2 drop OU HS PRN PRN Reason: Dry eyes Last Admin: 04/12/18 08:58 Dose: 2 drop Aspirin (Ecotrin) 325 mg PO DAILY [facility] Last Admin: 04/14/18 08:10 Dose: 325 mg Atorvastatin Calcium (Lipitor) 80 mg PO HS [facility] Last Admin: 04/13/18 21:15 Dose: 80 mg Bismuth Subsalicylate (Pepto Bismol) 262 mg PO Q8 PRN PRN Reason: Indigestion Last Admin: 04/14/18 17:25 Dose: 262 mg Clopidogrel Bisulfate (Plavix) 75 mg PO DAILY [facility] Last Admin: 04/14/18 08:13 Dose: 75 mg Enoxaparin Sodium (Lovenox) 40 mg SC DAILY [facility] PRN Reason: Protocol Last Admin: 04/14/18 08:09 Dose: 40 mg Losartan Potassium (Cozaar) 50 mg PO DAILY [facility] Last Admin: 04/14/18 08:10 Dose: 50 mg Magnesium Hydroxide (Milk Of Magnesia) 30 ml PO DAILY PRN PRN Reason: Constipation Ondansetron HCl (Zofran Tab) 4 mg PO Q8 PRN PRN Reason: Nausea/Vomiting Pantoprazole Sodium (Protonix Ec Tab) 40 mg PO 0630 [facility] Last Admin: 04/14/18 06:06 Dose: 40 mg Sennosides (Senokot Tab) 17.2 mg PO HS [facility] Last Admin: 04/13/18 21:16 Dose: Not Given Sertraline HCl (Zoloft) 50 mg PO DAILY [facility] Last Admin: 04/14/18 08:13 Dose: 50 mg Sodium Chloride ([place] Nasal [place]) 2 sprays ELSIE Q4 PRN PRN Reason: Nasal congestion Last Admin: 04/13/18 21:49 Dose: 2 spr Results - Vital Signs Recent Vital Signs: Last Vital Signs Temp 98.1 F 04/14/18 09:00 Pulse 69 04/14/18 09:00 Resp 20 04/14/18 09:00 BP 135/92 H 04/14/18 09:00 Pulse Ox 96 04/13/18 20:30 - Labs Result Diagrams: 04/13/18 05:25 04/12/18 05:30 Assessment & Plan - Assessment and Plan (Free Text) Assessment: 67 yr old woman with now second stroke in 10 years, with htn, and hyperlipidemia as risk factors. PLan: 1. Keep bp under normal parameters 2. Physical therapy 3. Tremors i believe are secondary to her weakness but we will monitor. Thank you Dr. matute
[2018-04-15] MEDS: Albuterol-Ipratrop 3 mg / 0.5 (3 ml) UD IH SCH ×4 (01:02→19:05)
[2018-04-15] MEDS: Pantoprazole 40 mg EC Tab PO SCH (05:54)
[2018-04-15 06:50] LABS: HEMOGLOBIN 11.9 g/dL (12.0-16.0); MEAN CELL VOLUME 85.5 fl (81.0-99.0); MEAN CORPUSCULAR HEMOGLOBIN 28.8 pg (27.0-31.0); MEAN CORPUSCULAR HGB CONC 33.7 g/dL (33.0-37.0); RBC 4.13 Mil/uL (3.80-5.20); RED CELL DISTRIBUTION WIDTH 15.8 % (11.5-14.5); WHITE BLOOD COUNT 4.7 K/uL (4.8-10.8)
[2018-04-15 06:55] LABS: BLOOD UREA NITROGEN 10 mg/dl (7-17); CALCIUM 9.8 mg/dL (8.4-10.2); GFR AFRICAN-AMERICAN > 60; GFR NON-AFRICAN AMERICAN > 60
[2018-04-15] MEDS: Enoxaparin 40 mg Syringe SC SCH (08:14)
[2018-04-15] MEDS: Aspirin 325 mg EC Tablets PO SCH (08:14)
[2018-04-15] MEDS: Artificial Tears Opht Soln OU PRN (08:22)
--- NOTE | 2018-04-15 10:34 | CP.PCM.PN ---
Subjective - Date & Time of Evaluation Date of Evaluation: 04/15/18 Time of Evaluation: 10:33 - Subjective Subjective: Ms. Stewart was seen and examined at the bedside. She is alert, oriented in all spheres. She is complaining headache in her bilateral temporal area radiating to the occipital area. She further claims of having diplopia which is new, but claims that her blurred vision has been old and was told that she has cataract. She is able to follow simple commands. She has crying spell, psychiary is on consult. There was no untoward events overnight. Objective - Vital Signs/Intake and Output Vital Signs (last 24 hours): Temp Pulse Resp BP Pulse Ox 97.3 F L 72 18 127/94 H 100 04/15/18 07:44 04/15/18 08:14 04/15/18 07:44 04/15/18 08:14 04/15/18 07:44 - Medications Medications: Current Medications Acetaminophen (Tylenol 325mg Tab) 650 mg PO Q6 PRN PRN Reason: Pain scale 1-10 Last Admin: 04/10/18 21:21 Dose: 650 mg Albuterol/Ipratropium (Duoneb 3 Mg/0.5 Mg (3 Ml) Ud) 3 ml IH RQ6 [facility] Last Admin: 04/15/18 07:44 Dose: 3 ml Artificial Tears (Artificial Tears) 2 drop OU HS PRN PRN Reason: Dry eyes Last Admin: 04/15/18 08:22 Dose: 2 drop Aspirin (Aspirin Chewable) 81 mg PO DAILY [facility] Atorvastatin Calcium (Lipitor) 80 mg PO HS [facility] Last Admin: 04/14/18 21:38 Dose: 80 mg Bismuth Subsalicylate (Pepto Bismol) 262 mg PO Q8 PRN PRN Reason: Indigestion Last Admin: 04/14/18 17:25 Dose: 262 mg Clopidogrel Bisulfate (Plavix) 75 mg PO DAILY [facility] Last Admin: 04/15/18 08:19 Dose: 75 mg Enoxaparin Sodium (Lovenox) 40 mg SC DAILY [facility] PRN Reason: Protocol Last Admin: 04/15/18 08:14 Dose: 40 mg Losartan Potassium (Cozaar) 50 mg PO DAILY [facility] Last Admin: 04/15/18 08:14 Dose: 50 mg Magnesium Hydroxide (Milk Of Magnesia) 30 ml PO DAILY PRN PRN Reason: Constipation Ondansetron HCl (Zofran Tab) 4 mg PO Q8 PRN PRN Reason: Nausea/Vomiting Pantoprazole Sodium (Protonix Ec Tab) 40 mg PO 0630 [facility] Last Admin: 04/15/18 05:54 Dose: 40 mg Sennosides (Senokot Tab) 17.2 mg PO HS [facility] Last Admin: 04/14/18 21:38 Dose: 17.2 mg Sertraline HCl (Zoloft) 50 mg PO DAILY [facility] Last Admin: 04/15/18 08:14 Dose: 50 mg Sodium Chloride ([place] Nasal [place]) 2 sprays ELSIE Q4 PRN PRN Reason: Nasal congestion Last Admin: 04/13/18 21:49 Dose: 2 spr Valproate Sodium (Depakene Cap) 250 mg PO BID [facility] - Labs Labs: 04/15/18 05:40 04/15/18 05:40 PT 12.1 Seconds (9.8-13.1) 04/10/18 06:30 INR 1.1 (0.9-1.2) 04/10/18 06:30 APTT 36.9 Seconds (25.6-37.1) 04/10/18 06:30 - Constitutional Appears: No Acute Distress - Head Exam Head Exam: NORMAL INSPECTION - Eye Exam Pupil Exam: Miosis, PERRL - Neurological Exam Neurological Exam: Alert, Awake, Oriented x3 Neuro motor strength exam: Left Upper Extremity: 3, Right Upper Extremity: 5, Left Lower Extremity: 3, Right Lower Extremity: 5 Additional comments: alert, follows commands with left side weakness. Assessment and Plan (1) CVA (cerebral vascular accident) Assessment & Plan: Case discussed with Dr. Otero, continue all current medical, physical, occupational, and speech therapies. Recommend MRI of the brain, orbits, face without contrast, opthalmology consult, and depakote 250 mg PO Q BID for headache, mood stabilizer, and AED prophylaxix due to her hx of previous stroke. Follow all recommendations from psychiatry for her depression. Status: Acute
[2018-04-15] MEDS: Bismuth Subsalicylate 262 mg Chew Tab PO PRN (16:34)
--- NOTE | 2018-04-15 18:19 | MRI ---
PROCEDURE: MRI BRAIN WITHOUT CONTRAST HISTORY: headache, diplopia COMPARISON: None. TECHNIQUE: Multiplanar, multisequence MR images of the brain were obtained without intravenous contrast enhancement. FINDINGS: HEMORRHAGE: There is a focal area of hemosiderin deposition in the dorsal aspect of the midbrain on the left side. This is consistent with an old hemorrhage. DWI: There is a 12 mm area of restricted diffusion in the left centrum semiovale consistent with an acute or subacute infarct. BRAIN PARENCHYMA: There is a focal area of atrophy in the left cerebellar hemisphere. Severe chronic microvascular changes are seen in the deep white matter bilaterally as well as the basal ganglia. VENTRICLES: Unremarkable. No hydrocephalus. CRANIUM: Unremarkable. ORBITS: Grossly unremarkable. PARANASAL SINUSES/MASTOIDS: Clear VASCULAR SYSTEM: Skull base flow voids intact. OTHER FINDINGS: None. IMPRESSION: There is a 12 mm area of restricted diffusion in the left centrum semiovale consistent with an acute or subacute infarct. Severe chronic microvascular changes in the deep white matter and basal ganglia bilaterally
--- NOTE | 2018-04-15 18:22 | MRI ---
PROCEDURE: MRI OF THE BRAIN AND ORBITS WITHOUT CONTRAST HISTORY: diplopia, COMPARISON: None. TECHNIQUE: Multiplanar, multisequence MR images of the brain and orbits were obtained without contrast enhancement. FINDINGS: ORBITS: Globes, extraocular muscles, optic nerves and retrobulbar fat are unremarkable. No intraorbital mass or infectious/inflammatory changes. PERIORBITAL SPACE: Unremarkable. SINUSES: Grossly clear. BRAIN: Visualized brain parenchyma unremarkable. No mass effect, edema or hemorrhage. OTHER FINDINGS: None. IMPRESSION: Unremarkable non-contrast enhanced MRI of the orbits.
[2018-04-16] MEDS: Albuterol-Ipratrop 3 mg / 0.5 (3 ml) UD IH SCH ×4 (01:06→20:34)
[2018-04-16] MEDS: Pantoprazole 40 mg EC Tab PO SCH (05:56)
[2018-04-16] MEDS: Enoxaparin 40 mg Syringe SC SCH (08:47)
--- NOTE | 2018-04-16 10:04 | CP.PCM.PN ---
Subjective - Date & Time of Evaluation Date of Evaluation: 04/16/18 Time of Evaluation: 10:03 - Subjective Subjective: Ms. Stewart was seen and examined at the bedside. She is alert, oriented in all spheres. She is alert, oriented still with episode of anxiety. She denies any headache, dizziness, nausea, or vomiting. She is able to participate during her therapy session. MRI of the brain showed acute/ subacute infarct in the left centrum semiovale ( on udal antiplatelet and statin therapies). MRI of the orbits is unremarkable. There was no untoward events overnight. Objective - Vital Signs/Intake and Output Vital Signs (last 24 hours): Temp Pulse Resp BP Pulse Ox 97.5 F L 63 20 123/86 96 04/16/18 07:46 04/16/18 08:48 04/16/18 07:46 04/16/18 08:48 04/15/18 20:02 - Medications Medications: Current Medications Acetaminophen (Tylenol 325mg Tab) 650 mg PO Q6 PRN PRN Reason: Pain scale 1-10 Last Admin: 04/10/18 21:21 Dose: 650 mg Albuterol/Ipratropium (Duoneb 3 Mg/0.5 Mg (3 Ml) Ud) 3 ml IH RQ6 [facility] Last Admin: 04/16/18 07:24 Dose: 3 ml Artificial Tears (Artificial Tears) 2 drop OU HS PRN PRN Reason: Dry eyes Last Admin: 04/15/18 08:22 Dose: 2 drop Aspirin (Aspirin Chewable) 81 mg PO DAILY [facility] Last Admin: 04/16/18 08:48 Dose: 81 mg Atorvastatin Calcium (Lipitor) 80 mg PO HS [facility] Last Admin: 04/15/18 21:14 Dose: 80 mg Bismuth Subsalicylate (Pepto Bismol) 262 mg PO Q8 PRN PRN Reason: Indigestion Last Admin: 04/15/18 16:34 Dose: 262 mg Clopidogrel Bisulfate (Plavix) 75 mg PO DAILY [facility] Last Admin: 04/16/18 08:48 Dose: 75 mg Enoxaparin Sodium (Lovenox) 40 mg SC DAILY [facility] PRN Reason: Protocol Last Admin: 04/16/18 08:47 Dose: 40 mg Losartan Potassium (Cozaar) 50 mg PO DAILY [facility] Last Admin: 04/16/18 08:48 Dose: 50 mg Magnesium Hydroxide (Milk Of Magnesia) 30 ml PO DAILY PRN PRN Reason: Constipation Ondansetron HCl (Zofran Tab) 4 mg PO Q8 PRN PRN Reason: Nausea/Vomiting Pantoprazole Sodium (Protonix Ec Tab) 40 mg PO 0630 [facility] Last Admin: 04/16/18 05:56 Dose: 40 mg Sennosides (Senokot Tab) 17.2 mg PO HS [facility] Last Admin: 04/15/18 21:14 Dose: 17.2 mg Sertraline HCl (Zoloft) 50 mg PO DAILY [facility] Last Admin: 04/16/18 08:48 Dose: 50 mg Sodium Chloride ([place] Nasal [place]) 2 sprays ELSIE Q4 PRN PRN Reason: Nasal congestion Last Admin: 04/13/18 21:49 Dose: 2 spr Valproate Sodium (Depakene Cap) 250 mg PO BID [facility] Last Admin: 04/16/18 08:48 Dose: 250 mg - Labs Labs: 04/15/18 05:40 04/15/18 05:40 PT 12.1 Seconds (9.8-13.1) 04/10/18 06:30 INR 1.1 (0.9-1.2) 04/10/18 06:30 APTT 36.9 Seconds (25.6-37.1) 04/10/18 06:30 - Constitutional Appears: No Acute Distress - Head Exam Head Exam: NORMAL INSPECTION - Neurological Exam Neurological Exam: Alert, Awake, Oriented x3 Neuro motor strength exam: Left Upper Extremity: 4, Right Upper Extremity: 3, Left Lower Extremity: 4, Right Lower Extremity: 3 Additional comments: Neurological unchanged from previous examination. Assessment and Plan (1) CVA (cerebral vascular accident) Assessment & Plan: Case discussed with Dr. Otero, continue all current medical, psychiatry, physical , occupational, and speech therapies. Recommend hydration, keep head of bed elevated at least 30 degrees while in bed, blood pressure, glycemic control. Status: Acute
[2018-04-16] MEDS: Bismuth Subsalicylate 262 mg Chew Tab PO PRN (15:30)
[2018-04-17] MEDS: Albuterol-Ipratrop 3 mg / 0.5 (3 ml) UD IH SCH ×4 (01:36→19:23)
[2018-04-17] MEDS: Pantoprazole 40 mg EC Tab PO SCH (06:33)
[2018-04-17] MEDS: Enoxaparin 40 mg Syringe SC SCH (08:08)
--- NOTE | 2018-04-17 10:55 | CP.PCM.PN ---
Subjective - Date & Time of Evaluation Date of Evaluation: 04/17/18 Time of Evaluation: 10:55 - Subjective Subjective: Ms. Stewart was seen and examined at the bedside. She is alert, oriented in all spheres. She is alert, oriented still with episode of anxiety. She denies any dizziness, nausea, or vomiting, but complains of headache in her right temporal area radiating to her occipital area, pain scale 8/10, throbbing. She is able to participate during her therapy session. There was no untoward events overnight. Objective - Vital Signs/Intake and Output Vital Signs (last 24 hours): Temp Pulse Resp BP Pulse Ox 98.1 F 91 H 20 153/98 H 97 04/17/18 07:44 04/17/18 08:07 04/17/18 07:44 04/17/18 08:07 04/16/18 20:01 - Medications Medications: Current Medications Acetaminophen (Tylenol 325mg Tab) 650 mg PO Q6 PRN PRN Reason: Pain scale 1-10 Last Admin: 04/10/18 21:21 Dose: 650 mg Albuterol/Ipratropium (Duoneb 3 Mg/0.5 Mg (3 Ml) Ud) 3 ml IH RQ6 [facility] Last Admin: 04/17/18 07:52 Dose: 3 ml Artificial Tears (Artificial Tears) 2 drop OU HS PRN PRN Reason: Dry eyes Last Admin: 04/15/18 08:22 Dose: 2 drop Aspirin (Aspirin Chewable) 81 mg PO DAILY [facility] Last Admin: 04/17/18 08:08 Dose: 81 mg Atorvastatin Calcium (Lipitor) 80 mg PO HS [facility] Last Admin: 04/16/18 21:06 Dose: 80 mg Bismuth Subsalicylate (Pepto Bismol) 262 mg PO Q8 PRN PRN Reason: Indigestion Last Admin: 04/16/18 15:30 Dose: 262 mg Clopidogrel Bisulfate (Plavix) 75 mg PO DAILY [facility] Last Admin: 04/17/18 08:08 Dose: 75 mg Enoxaparin Sodium (Lovenox) 40 mg SC DAILY [facility] PRN Reason: Protocol Last Admin: 04/17/18 08:08 Dose: 40 mg Losartan Potassium (Cozaar) 50 mg PO DAILY [facility] Last Admin: 04/17/18 08:07 Dose: 50 mg Magnesium Hydroxide (Milk Of Magnesia) 30 ml PO DAILY PRN PRN Reason: Constipation Magnesium Oxide (Mag-Ox) 400 mg PO BID [facility] Ondansetron HCl (Zofran Tab) 4 mg PO Q8 PRN PRN Reason: Nausea/Vomiting Pantoprazole Sodium (Protonix Ec Tab) 40 mg PO 0630 [facility] Last Admin: 04/17/18 06:33 Dose: 40 mg Sennosides (Senokot Tab) 17.2 mg PO HS [facility] Last Admin: 04/16/18 21:07 Dose: 17.2 mg Sertraline HCl (Zoloft) 50 mg PO DAILY [facility] Last Admin: 04/17/18 08:08 Dose: 50 mg Sodium Chloride ([place] Nasal [place]) 2 sprays ELSIE Q4 PRN PRN Reason: Nasal congestion Last Admin: 04/13/18 21:49 Dose: 2 spr Valproate Sodium (Depakene Oral Soln) 500 mg PO Q12 [facility] - Labs Labs: 04/15/18 05:40 04/15/18 05:40 PT 12.1 Seconds (9.8-13.1) 04/10/18 06:30 INR 1.1 (0.9-1.2) 04/10/18 06:30 APTT 36.9 Seconds (25.6-37.1) 04/10/18 06:30 - Constitutional Appears: No Acute Distress - Head Exam Head Exam: NORMAL INSPECTION - Eye Exam Pupil Exam: PERRL - Neurological Exam Neurological Exam: Alert, Awake, Oriented x3 Neuro motor strength exam: Left Upper Extremity: 5, Right Upper Extremity: 3, Left Lower Extremity: 5, Right Lower Extremity: 3 Additional comments: Neurological unchanged from previous examination. Assessment and Plan (1) CVA (cerebral vascular accident) Assessment & Plan: Case discussed with Dr. Otero, continue all current medical, psychiatry, physical , occupational, and speech therapies. Recommend depakote 500 mg PO Q 12, hydration, keep head of bed elevated at least 30 degrees while in bed, blood pressure, glycemic control. Status: Acute
[2018-04-17] MEDS: Magnesium Oxide 400 mg Tab UD PO SCH ×2 (11:54→16:40)
--- NOTE | 2018-04-17 13:21 | CP.PCM.PN ---
Objective - Vital Signs/Intake and Output Vital Signs (last 24 hours): Temp Pulse Resp BP Pulse Ox 98.1 F 91 H 20 153/98 H 97 04/17/18 07:44 04/17/18 08:07 04/17/18 07:44 04/17/18 08:07 04/16/18 20:01 - Medications Medications: Current Medications Acetaminophen (Tylenol 325mg Tab) 650 mg PO Q6 PRN PRN Reason: Pain scale 1-10 Last Admin: 04/10/18 21:21 Dose: 650 mg Albuterol/Ipratropium (Duoneb 3 Mg/0.5 Mg (3 Ml) Ud) 3 ml IH RQ6 [facility] Last Admin: 04/17/18 07:52 Dose: 3 ml Artificial Tears (Artificial Tears) 2 drop OU HS PRN PRN Reason: Dry eyes Last Admin: 04/15/18 08:22 Dose: 2 drop Aspirin (Aspirin Chewable) 81 mg PO DAILY [facility] Last Admin: 04/17/18 08:08 Dose: 81 mg Atorvastatin Calcium (Lipitor) 80 mg PO HS [facility] Last Admin: 04/16/18 21:06 Dose: 80 mg Bismuth Subsalicylate (Pepto Bismol) 262 mg PO Q8 PRN PRN Reason: Indigestion Last Admin: 04/16/18 15:30 Dose: 262 mg Clopidogrel Bisulfate (Plavix) 75 mg PO DAILY [facility] Last Admin: 04/17/18 08:08 Dose: 75 mg Enoxaparin Sodium (Lovenox) 40 mg SC DAILY [facility] PRN Reason: Protocol Last Admin: 04/17/18 08:08 Dose: 40 mg Fluticasone Propionate (Flonase) 1 spr ELSIE BID [facility] Last Admin: 04/17/18 11:54 Dose: 1 spr Losartan Potassium (Cozaar) 50 mg PO DAILY [facility] Last Admin: 04/17/18 08:07 Dose: 50 mg Magnesium Hydroxide (Milk Of Magnesia) 30 ml PO DAILY PRN PRN Reason: Constipation Magnesium Oxide (Mag-Ox) 400 mg PO BID [facility] Last Admin: 04/17/18 11:54 Dose: 400 mg Ondansetron HCl (Zofran Tab) 4 mg PO Q8 PRN PRN Reason: Nausea/Vomiting Pantoprazole Sodium (Protonix Ec Tab) 40 mg PO 0630 [facility] Last Admin: 04/17/18 06:33 Dose: 40 mg Sennosides (Senokot Tab) 17.2 mg PO HS [facility] Last Admin: 04/16/18 21:07 Dose: 17.2 mg Sertraline HCl (Zoloft) 50 mg PO DAILY [facility] Last Admin: 04/17/18 08:08 Dose: 50 mg Sodium Chloride ([place] Nasal [place]) 2 sprays ELSIE Q4 PRN PRN Reason: Nasal congestion Last Admin: 04/13/18 21:49 Dose: 2 spr Valproate Sodium (Depakene Oral Soln) 500 mg PO Q12 [facility] - Labs Labs: 04/15/18 05:40 04/15/18 05:40 PT 12.1 Seconds (9.8-13.1) 04/10/18 06:30 INR 1.1 (0.9-1.2) 04/10/18 06:30 APTT 36.9 Seconds (25.6-37.1) 04/10/18 06:30 Assessment and Plan (1) CVA (cerebral vascular accident) Status: Acute
--- NOTE | 2018-04-17 15:22 | CP.PCM.PN ---
Subjective - Date & Time of Evaluation Date of Evaluation: 04/17/18 Time of Evaluation: 15:22 - Subjective Subjective: Patient seen in therapies making good gains no pain still needs CS with occ. CG well motivated continue current care Objective - Vital Signs/Intake and Output Vital Signs (last 24 hours): Temp Pulse Resp BP Pulse Ox 98.1 F 79 20 153/98 H 97 04/17/18 07:44 04/17/18 08:45 04/17/18 07:44 04/17/18 08:07 04/16/18 20:01 - Medications Medications: Current Medications Acetaminophen (Tylenol 325mg Tab) 650 mg PO Q6 PRN PRN Reason: Pain scale 1-10 Last Admin: 04/10/18 21:21 Dose: 650 mg Albuterol/Ipratropium (Duoneb 3 Mg/0.5 Mg (3 Ml) Ud) 3 ml IH RQ6 [facility] Last Admin: 04/17/18 13:21 Dose: Not Given Artificial Tears (Artificial Tears) 2 drop OU HS PRN PRN Reason: Dry eyes Last Admin: 04/15/18 08:22 Dose: 2 drop Aspirin (Aspirin Chewable) 81 mg PO DAILY [facility] Last Admin: 04/17/18 08:08 Dose: 81 mg Atorvastatin Calcium (Lipitor) 80 mg PO HS [facility] Last Admin: 04/16/18 21:06 Dose: 80 mg Bismuth Subsalicylate (Pepto Bismol) 262 mg PO Q8 PRN PRN Reason: Indigestion Last Admin: 04/16/18 15:30 Dose: 262 mg Clopidogrel Bisulfate (Plavix) 75 mg PO DAILY [facility] Last Admin: 04/17/18 08:08 Dose: 75 mg Enoxaparin Sodium (Lovenox) 40 mg SC DAILY [facility] PRN Reason: Protocol Last Admin: 04/17/18 08:08 Dose: 40 mg Fluticasone Propionate (Flonase) 1 spr ELSIE BID [facility] Last Admin: 04/17/18 11:54 Dose: 1 spr Losartan Potassium (Cozaar) 50 mg PO DAILY [facility] Last Admin: 04/17/18 08:07 Dose: 50 mg Magnesium Hydroxide (Milk Of Magnesia) 30 ml PO DAILY PRN PRN Reason: Constipation Magnesium Oxide (Mag-Ox) 400 mg PO BID [facility] Last Admin: 04/17/18 11:54 Dose: 400 mg Ondansetron HCl (Zofran Tab) 4 mg PO Q8 PRN PRN Reason: Nausea/Vomiting Pantoprazole Sodium (Protonix Ec Tab) 40 mg PO 0630 [facility] Last Admin: 04/17/18 06:33 Dose: 40 mg Sennosides (Senokot Tab) 17.2 mg PO HS [facility] Last Admin: 04/16/18 21:07 Dose: 17.2 mg Sertraline HCl (Zoloft) 50 mg PO DAILY [facility] Last Admin: 04/17/18 08:08 Dose: 50 mg Sodium Chloride ([place] Nasal [place]) 2 sprays ELSIE Q4 PRN PRN Reason: Nasal congestion Last Admin: 04/13/18 21:49 Dose: 2 spr Valproate Sodium (Depakene Oral Soln) 500 mg PO Q12 [facility] - Labs Labs: 04/15/18 05:40 04/15/18 05:40 PT 12.1 Seconds (9.8-13.1) 04/10/18 06:30 INR 1.1 (0.9-1.2) 04/10/18 06:30 APTT 36.9 Seconds (25.6-37.1) 04/10/18 06:30
--- NOTE | 2018-04-17 16:09 | CP.PCM.PN ---
Subjective - Date & Time of Evaluation Date of Evaluation: 04/17/18 Time of Evaluation: 11:45 - Subjective Subjective: Patient seen and examined. She claimed she is improving. Objective - Vital Signs/Intake and Output Vital Signs (last 24 hours): Temp Pulse Resp BP Pulse Ox 98.1 F 79 20 153/98 H 97 04/17/18 07:44 04/17/18 08:45 04/17/18 07:44 04/17/18 08:07 04/16/18 20:01 - Medications Medications: Current Medications Acetaminophen (Tylenol 325mg Tab) 650 mg PO Q6 PRN PRN Reason: Pain scale 1-10 Last Admin: 04/10/18 21:21 Dose: 650 mg Albuterol/Ipratropium (Duoneb 3 Mg/0.5 Mg (3 Ml) Ud) 3 ml IH RQ6 [facility] Last Admin: 04/17/18 13:21 Dose: Not Given Artificial Tears (Artificial Tears) 2 drop OU HS PRN PRN Reason: Dry eyes Last Admin: 04/15/18 08:22 Dose: 2 drop Aspirin (Aspirin Chewable) 81 mg PO DAILY [facility] Last Admin: 04/17/18 08:08 Dose: 81 mg Atorvastatin Calcium (Lipitor) 80 mg PO HS [facility] Last Admin: 04/16/18 21:06 Dose: 80 mg Bismuth Subsalicylate (Pepto Bismol) 262 mg PO Q8 PRN PRN Reason: Indigestion Last Admin: 04/16/18 15:30 Dose: 262 mg Clopidogrel Bisulfate (Plavix) 75 mg PO DAILY [facility] Last Admin: 04/17/18 08:08 Dose: 75 mg Enoxaparin Sodium (Lovenox) 40 mg SC DAILY [facility] PRN Reason: Protocol Last Admin: 04/17/18 08:08 Dose: 40 mg Fluticasone Propionate (Flonase) 1 spr ELSIE BID [facility] Last Admin: 04/17/18 11:54 Dose: 1 spr Losartan Potassium (Cozaar) 50 mg PO DAILY [facility] Last Admin: 04/17/18 08:07 Dose: 50 mg Magnesium Hydroxide (Milk Of Magnesia) 30 ml PO DAILY PRN PRN Reason: Constipation Magnesium Oxide (Mag-Ox) 400 mg PO BID [facility] Last Admin: 04/17/18 11:54 Dose: 400 mg Ondansetron HCl (Zofran Tab) 4 mg PO Q8 PRN PRN Reason: Nausea/Vomiting Pantoprazole Sodium (Protonix Ec Tab) 40 mg PO 0630 [facility] Last Admin: 04/17/18 06:33 Dose: 40 mg Sennosides (Senokot Tab) 17.2 mg PO HS [facility] Last Admin: 04/16/18 21:07 Dose: 17.2 mg Sertraline HCl (Zoloft) 50 mg PO DAILY [facility] Last Admin: 04/17/18 08:08 Dose: 50 mg Sodium Chloride ([place] Nasal [place]) 2 sprays ELSIE Q4 PRN PRN Reason: Nasal congestion Last Admin: 04/13/18 21:49 Dose: 2 spr Valproate Sodium (Depakene Oral Soln) 500 mg PO Q12 [facility] - Labs Labs: 04/15/18 05:40 04/15/18 05:40 PT 12.1 Seconds (9.8-13.1) 04/10/18 06:30 INR 1.1 (0.9-1.2) 04/10/18 06:30 APTT 36.9 Seconds (25.6-37.1) 04/10/18 06:30 - Constitutional Appears: No Acute Distress - Head Exam Head Exam: ATRAUMATIC - Eye Exam Eye Exam: absent: Scleral icterus - ENT Exam ENT Exam: Mucous Membranes Moist - Neck Exam Neck Exam: absent: Meningismus - Respiratory Exam Respiratory Exam: NORMAL BREATHING PATTERN. absent: Rales, Rhonchi, Wheezes, Respiratory Distress - Cardiovascular Exam Cardiovascular Exam: REGULAR RHYTHM, +S1, +S2 - GI/Abdominal Exam GI & Abdominal Exam: Soft. absent: Tenderness - Rectal Exam Rectal Exam: Deferred - Neurological Exam Neurological Exam: Alert, Oriented x3 - Psychiatric Exam Psychiatric exam: Normal Affect - Skin Skin Exam: Dry, Intact Assessment and Plan - Assessment and Plan (Free Text) Assessment: 67 years old female with history of HTN, HLD and 2 previous CVA [place] [facility] [place] and right facial weakness after a fall. She was diagnosed with Acute CVA and when neurologically and hemodynamically stable was transferred to [facility] for admission to Acute Rehab for continuation of therapy. 1. Acute CVA with dysarthria and right facial weakness recurrent CVAs continue PT/OT/speech therapy physiatry consult with Dr Orozco continue ASA, Plavix, statin 2. HTN BP stable continue Losartan 3. HLD continue Lipitor 4. Depression continue Zoloft 5. CAD on ASA/Lipitor/Plavix 6. DVT prophylaxis continue Lovenox
[2018-04-17] MEDS: Valproic Acid 250 mg/5 ml UD Cup PO SCH (21:48)
[2018-04-18] MEDS: Albuterol-Ipratrop 3 mg / 0.5 (3 ml) UD IH SCH ×4 (02:00→19:24)
[2018-04-18] MEDS: Pantoprazole 40 mg EC Tab PO SCH (06:43)
[2018-04-18 07:30] LABS: HEMOGLOBIN 11.4 g/dL (12.0-16.0); MEAN CELL VOLUME 85.8 fl (81.0-99.0); MEAN CORPUSCULAR HEMOGLOBIN 28.7 pg (27.0-31.0); MEAN CORPUSCULAR HGB CONC 33.5 g/dL (33.0-37.0); RBC 3.96 Mil/uL (3.80-5.20); RED CELL DISTRIBUTION WIDTH 16.2 % (11.5-14.5); WHITE BLOOD COUNT 4.3 K/uL (4.8-10.8)
[2018-04-18 07:37] LABS: BLOOD UREA NITROGEN 11 mg/dl (7-17); GFR AFRICAN-AMERICAN > 60; GFR NON-AFRICAN AMERICAN > 60
[2018-04-18 07:38] LABS: CALCIUM 9.9 mg/dL (8.4-10.2)
[2018-04-18] MEDS: Enoxaparin 40 mg Syringe SC SCH (09:05)
[2018-04-18] MEDS: Magnesium Oxide 400 mg Tab UD PO SCH ×2 (09:06→16:52)
[2018-04-18] MEDS: Valproic Acid 250 mg/5 ml UD Cup PO SCH (09:07)
[2018-04-19] MEDS: Albuterol-Ipratrop 3 mg / 0.5 (3 ml) UD IH SCH ×4 (01:23→19:29)
[2018-04-19] MEDS: Pantoprazole 40 mg EC Tab PO SCH (06:45)
[2018-04-19] MEDS: Magnesium Oxide 400 mg Tab UD PO SCH ×2 (08:35→16:59)
[2018-04-19] MEDS: Enoxaparin 40 mg Syringe SC SCH (08:36)
[2018-04-19] MEDS: Hydrocortisone 2.5% (Rectal) CREAM PR SCH (17:00)
[2018-04-19] MEDS: Dexamethasone/Tobramycin Ophth Susp OU SCH ×2 (17:00→21:03)
[2018-04-20] MEDS: Albuterol-Ipratrop 3 mg / 0.5 (3 ml) UD IH SCH ×4 (01:00→19:01)
[2018-04-20] MEDS: Pantoprazole 40 mg EC Tab PO SCH (06:06)
--- NOTE | 2018-04-20 07:55 | CON ---
DATE: 04/19/2018 HISTORY OF PRESENT ILLNESS: The patient is a 67-year-old black female. I was called in to see her for double vision. She has a history of recent CVA. Her chief complaint was that she had double vision and her eyes felt scratchy. PHYSICAL EXAMINATION: EYES: Visual acuity is 20/30 in each eye. Extraocular movement exam showed a left sixth nerve palsy with difficulty in abduction of the left eye. Corneal exam is normal. Lens exam showed mild cataracts. Fundus exam was normal. Conjunctival exam showed slight injection of both conjunctivae. ASSESSMENT AND PLAN: My assessment is that the patient has left sixth nerve palsy and allergic conjunctivitis. I reassured the patient that the sixth nerve palsy should resolve with time. I also put her on TobraDex one drop to both eyes four times a day. I gave her my telephone number and asked her to come to see me in the office thereafter discharge. Earnest Dean MD
[2018-04-20] MEDS: Hydrocortisone 2.5% (Rectal) CREAM PR SCH ×2 (08:30→16:49)
[2018-04-20] MEDS: Magnesium Oxide 400 mg Tab UD PO SCH ×2 (08:36→16:49)
[2018-04-20] MEDS: Enoxaparin 40 mg Syringe SC SCH (08:37)
[2018-04-20] MEDS: Dexamethasone/Tobramycin Ophth Susp OU SCH ×4 (08:37→21:43)
--- NOTE | 2018-04-20 10:02 | CP.PCM.PN ---
Subjective - Date & Time of Evaluation Date of Evaluation: 04/20/18 Time of Evaluation: 10:01 - Subjective Subjective: Patient seen in the room with speech therapy continues to improve across the board had some bleeding hemorrhoids over the weekend but better now no constipation continue current care Objective - Vital Signs/Intake and Output Vital Signs (last 24 hours): Temp Pulse Resp BP Pulse Ox 97.7 F 67 20 137/95 H 98 04/20/18 07:40 04/20/18 08:36 04/20/18 07:40 04/20/18 08:36 04/19/18 19:58 - Medications Medications: Current Medications Acetaminophen (Tylenol 325mg Tab) 650 mg PO Q6 PRN PRN Reason: Pain scale 1-10 Last Admin: 04/19/18 10:55 Dose: 650 mg Albuterol/Ipratropium (Duoneb 3 Mg/0.5 Mg (3 Ml) Ud) 3 ml IH RQ6 [facility] Last Admin: 04/20/18 07:20 Dose: 3 ml Artificial Tears (Artificial Tears) 2 drop OU HS PRN PRN Reason: Dry eyes Last Admin: 04/15/18 08:22 Dose: 2 drop Aspirin (Aspirin Chewable) 81 mg PO DAILY [facility] Last Admin: 04/20/18 08:36 Dose: 81 mg Atorvastatin Calcium (Lipitor) 80 mg PO HS [facility] Last Admin: 04/19/18 21:03 Dose: 80 mg Bismuth Subsalicylate (Pepto Bismol) 262 mg PO Q8 PRN PRN Reason: Indigestion Last Admin: 04/16/18 15:30 Dose: 262 mg Clopidogrel Bisulfate (Plavix) 75 mg PO DAILY [facility] Last Admin: 04/20/18 08:39 Dose: 75 mg Enoxaparin Sodium (Lovenox) 40 mg SC DAILY [facility] PRN Reason: Protocol Last Admin: 04/20/18 08:37 Dose: 40 mg Fluticasone Propionate (Flonase) 1 spr ELSIE BID [facility] Last Admin: 04/20/18 08:31 Dose: 1 spr Hydrocortisone (Anusol-Hc) 1 applic [place] BID [facility] Last Admin: 04/20/18 08:30 Dose: 1 applic Losartan Potassium (Cozaar) 50 mg PO DAILY [facility] Last Admin: 04/20/18 08:36 Dose: 50 mg Magnesium Hydroxide (Milk Of Magnesia) 30 ml PO DAILY PRN PRN Reason: Constipation Magnesium Oxide (Mag-Ox) 400 mg PO BID [facility] Last Admin: 04/20/18 08:36 Dose: 400 mg Ondansetron HCl (Zofran Tab) 4 mg PO Q8 PRN PRN Reason: Nausea/Vomiting Pantoprazole Sodium (Protonix Ec Tab) 40 mg PO 0630 [facility] Last Admin: 04/20/18 06:06 Dose: 40 mg Sennosides (Senokot Tab) 17.2 mg PO HS [facility] Last Admin: 04/19/18 21:03 Dose: Not Given Sertraline HCl (Zoloft) 50 mg PO DAILY [facility] Last Admin: 04/20/18 08:41 Dose: 50 mg Sodium Chloride ([place] Nasal [place]) 2 sprays ELSIE Q4 PRN PRN Reason: Nasal congestion Last Admin: 04/13/18 21:49 Dose: 2 spr Tobramycin/Dexamethasone (Tobradex Opht Susp) 1 drop OU QID [facility] Stop: 04/26/18 17:01 Last Admin: 04/20/18 08:37 Dose: 1 drop Valproate Sodium (Depakene Cap) 500 mg PO Q12 [facility] Last Admin: 04/20/18 08:36 Dose: 500 mg - Labs Labs: 04/18/18 05:20 04/18/18 05:20 PT 12.1 Seconds (9.8-13.1) 04/10/18 06:30 INR 1.1 (0.9-1.2) 04/10/18 06:30 APTT 36.9 Seconds (25.6-37.1) 04/10/18 06:30
--- NOTE | 2018-04-20 10:39 | CP.PCM.PN ---
Subjective - Date & Time of Evaluation Date of Evaluation: 04/20/18 Time of Evaluation: 10:37 - Subjective Subjective: Ms. Stewart was seen and examined at the bedside. She is alert, oriented in all spheres. She is alert, oriented still with episode of anxiety. She denies any dizziness, nausea, or vomiting. She express her concern regarding being at home by herself. mental health social worker is aware. She is able to participate during her therapy session. There was no untoward events overnight. Objective - Vital Signs/Intake and Output Vital Signs (last 24 hours): Temp Pulse Resp BP Pulse Ox 97.7 F 67 20 137/95 H 98 04/20/18 07:40 04/20/18 08:36 04/20/18 07:40 04/20/18 08:36 04/19/18 19:58 - Medications Medications: Current Medications Acetaminophen (Tylenol 325mg Tab) 650 mg PO Q6 PRN PRN Reason: Pain scale 1-10 Last Admin: 04/19/18 10:55 Dose: 650 mg Albuterol/Ipratropium (Duoneb 3 Mg/0.5 Mg (3 Ml) Ud) 3 ml IH RQ6 [facility] Last Admin: 04/20/18 07:20 Dose: 3 ml Artificial Tears (Artificial Tears) 2 drop OU HS PRN PRN Reason: Dry eyes Last Admin: 04/15/18 08:22 Dose: 2 drop Aspirin (Aspirin Chewable) 81 mg PO DAILY [facility] Last Admin: 04/20/18 08:36 Dose: 81 mg Atorvastatin Calcium (Lipitor) 80 mg PO HS [facility] Last Admin: 04/19/18 21:03 Dose: 80 mg Bismuth Subsalicylate (Pepto Bismol) 262 mg PO Q8 PRN PRN Reason: Indigestion Last Admin: 04/16/18 15:30 Dose: 262 mg Clopidogrel Bisulfate (Plavix) 75 mg PO DAILY [facility] Last Admin: 04/20/18 08:39 Dose: 75 mg Enoxaparin Sodium (Lovenox) 40 mg SC DAILY [facility] PRN Reason: Protocol Last Admin: 04/20/18 08:37 Dose: 40 mg Fluticasone Propionate (Flonase) 1 spr ELSIE BID [facility] Last Admin: 04/20/18 08:31 Dose: 1 spr Hydrocortisone (Anusol-Hc) [address] BID [facility] Last Admin: 04/20/18 08:30 Dose: 1 applic Losartan Potassium (Cozaar) 50 mg PO DAILY [facility] Last Admin: 04/20/18 08:36 Dose: 50 mg Magnesium Hydroxide (Milk Of Magnesia) 30 ml PO DAILY PRN PRN Reason: Constipation Magnesium Oxide (Mag-Ox) 400 mg PO BID [facility] Last Admin: 04/20/18 08:36 Dose: 400 mg Ondansetron HCl (Zofran Tab) 4 mg PO Q8 PRN PRN Reason: Nausea/Vomiting Pantoprazole Sodium (Protonix Ec Tab) 40 mg PO 0630 [facility] Last Admin: 04/20/18 06:06 Dose: 40 mg Sennosides (Senokot Tab) 17.2 mg PO HS [facility] Last Admin: 04/19/18 21:03 Dose: Not Given Sertraline HCl (Zoloft) 50 mg PO DAILY [facility] Last Admin: 04/20/18 08:41 Dose: 50 mg Sodium Chloride ([place] Nasal [place]) 2 sprays ELSIE Q4 PRN PRN Reason: Nasal congestion Last Admin: 04/13/18 21:49 Dose: 2 spr Tobramycin/Dexamethasone (Tobradex Opht Susp) 1 drop OU QID [facility] Stop: 04/26/18 17:01 Last Admin: 04/20/18 08:37 Dose: 1 drop Valproate Sodium (Depakene Cap) 500 mg PO Q12 [facility] Last Admin: 04/20/18 08:36 Dose: 500 mg - Labs Labs: 04/18/18 05:20 04/18/18 05:20 PT 12.1 Seconds (9.8-13.1) 04/10/18 06:30 INR 1.1 (0.9-1.2) 04/10/18 06:30 APTT 36.9 Seconds (25.6-37.1) 04/10/18 06:30 - Head Exam Head Exam: NORMAL INSPECTION - Eye Exam Pupil Exam: PERRL - Neurological Exam Neurological Exam: Alert, Awake, Oriented x3 Neuro motor strength exam: Left Upper Extremity: 5, Right Upper Extremity: 4, Left Lower Extremity: 5, Right Lower Extremity: 3 Additional comments: Neurological unchanged from previous examination. Assessment and Plan (1) CVA (cerebral vascular accident) Assessment & Plan: Case discussed by Dr. Marion, continue all current medical, psychiatry, physical , occupational, and speech therapies. Recommend hydration, keep head of bed elevated at least 30 degrees while in bed, blood pressure, glycemic control. Status: Acute
--- NOTE | 2018-04-20 17:29 | CP.PCM.PN ---
Subjective - Date & Time of Evaluation Date of Evaluation: 04/20/18 Time of Evaluation: 11:30 - Subjective Subjective: Patient seen and examined. This is her 3rd stroke and she is concern about living alone. Her homemaker only stays with her from 8 to 11 am. She will be all alone after that until the next day. Objective - Vital Signs/Intake and Output Vital Signs (last 24 hours): Temp Pulse Resp BP Pulse Ox 97.7 F 67 20 137/95 H 98 04/20/18 07:40 04/20/18 08:36 04/20/18 07:40 04/20/18 08:36 04/19/18 19:58 - Medications Medications: Current Medications Acetaminophen (Tylenol 325mg Tab) 650 mg PO Q6 PRN PRN Reason: Pain scale 1-10 Last Admin: 04/19/18 10:55 Dose: 650 mg Albuterol/Ipratropium (Duoneb 3 Mg/0.5 Mg (3 Ml) Ud) 3 ml IH RQ6 [facility] Last Admin: 04/20/18 13:11 Dose: Not Given Artificial Tears (Artificial Tears) 2 drop OU HS PRN PRN Reason: Dry eyes Last Admin: 04/15/18 08:22 Dose: 2 drop Aspirin (Aspirin Chewable) 81 mg PO DAILY [facility] Last Admin: 04/20/18 08:36 Dose: 81 mg Atorvastatin Calcium (Lipitor) 80 mg PO HS [facility] Last Admin: 04/19/18 21:03 Dose: 80 mg Bismuth Subsalicylate (Pepto Bismol) 262 mg PO Q8 PRN PRN Reason: Indigestion Last Admin: 04/16/18 15:30 Dose: 262 mg Clopidogrel Bisulfate (Plavix) 75 mg PO DAILY [facility] Last Admin: 04/20/18 08:39 Dose: 75 mg Enoxaparin Sodium (Lovenox) 40 mg SC DAILY [facility] PRN Reason: Protocol Last Admin: 04/20/18 08:37 Dose: 40 mg Fluticasone Propionate (Flonase) 1 spr ELSIE BID [facility] Last Admin: 04/20/18 16:49 Dose: 1 spr Hydrocortisone (Anusol-Hc) 1 applic [place] BID [facility] Last Admin: 04/20/18 16:49 Dose: 1 applic Losartan Potassium (Cozaar) 50 mg PO DAILY [facility] Last Admin: 04/20/18 08:36 Dose: 50 mg Magnesium Hydroxide (Milk Of Magnesia) 30 ml PO DAILY PRN PRN Reason: Constipation Magnesium Oxide (Mag-Ox) 400 mg PO BID [facility] Last Admin: 04/20/18 16:49 Dose: 400 mg Ondansetron HCl (Zofran Tab) 4 mg PO Q8 PRN PRN Reason: Nausea/Vomiting Pantoprazole Sodium (Protonix Ec Tab) 40 mg PO 0630 [facility] Last Admin: 04/20/18 06:06 Dose: 40 mg Sennosides (Senokot Tab) 17.2 mg PO HS [facility] Last Admin: 04/19/18 21:03 Dose: Not Given Sertraline HCl (Zoloft) 50 mg PO DAILY [facility] Last Admin: 04/20/18 08:41 Dose: 50 mg Sodium Chloride ([place] Nasal [place]) 2 sprays ELSIE Q4 PRN PRN Reason: Nasal congestion Last Admin: 04/13/18 21:49 Dose: 2 spr Tobramycin/Dexamethasone (Tobradex Opht Susp) 1 drop OU QID [facility] Stop: 04/26/18 17:01 Last Admin: 04/20/18 16:48 Dose: 1 drop Valproate Sodium (Depakene Cap) 500 mg PO Q12 [facility] Last Admin: 04/20/18 08:36 Dose: 500 mg - Labs Labs: 04/18/18 05:20 04/18/18 05:20 PT 12.1 Seconds (9.8-13.1) 04/10/18 06:30 INR 1.1 (0.9-1.2) 04/10/18 06:30 APTT 36.9 Seconds (25.6-37.1) 04/10/18 06:30 - Constitutional Appears: No Acute Distress - Head Exam Head Exam: ATRAUMATIC - Eye Exam Eye Exam: absent: Scleral icterus - ENT Exam ENT Exam: Mucous Membranes Moist - Neck Exam Neck Exam: absent: Meningismus - Respiratory Exam Respiratory Exam: absent: Rales, Rhonchi, Wheezes, Respiratory Distress - Cardiovascular Exam Cardiovascular Exam: REGULAR RHYTHM, +S1, +S2 - GI/Abdominal Exam GI & Abdominal Exam: Soft. absent: Tenderness - Rectal Exam Rectal Exam: Deferred - Neurological Exam Neurological Exam: Alert, Oriented x3 - Psychiatric Exam Psychiatric exam: Normal Affect - Skin Skin Exam: Dry, Intact Assessment and Plan - Assessment and Plan (Free Text) Assessment: 67 years old female with history of HTN, HLD and 2 previous CVA [place] [facility] [place] and right facial weakness after a fall. She was diagnosed with Acute CVA and when neurologically and hemodynamically stable was transferred to [facility] for admission to Acute Rehab for continuation of therapy. 1. Acute CVA with dysarthria and right facial weakness recurrent CVA with weakness on the right side in 2013 and 2015 continue PT/OT/speech therapy physiatry consult with Dr Orozco continue ASA, Plavix, statin and BP management 2. HTN BP stable continue Losartan 3. HLD continue Lipitor 80mg PO HS 4. Depression continue Zoloft 5. CAD continue ASA, Lipitor and Plavix 6. DVT prophylaxis continue Lovenox
[2018-04-21] MEDS: Albuterol-Ipratrop 3 mg / 0.5 (3 ml) UD IH SCH ×4 (01:02→19:13)
[2018-04-21] MEDS: Pantoprazole 40 mg EC Tab PO SCH (07:05)
[2018-04-21] MEDS: Hydrocortisone 2.5% (Rectal) CREAM PR SCH ×2 (08:37→17:01)
[2018-04-21] MEDS: Dexamethasone/Tobramycin Ophth Susp OU SCH ×4 (08:38→21:24)
[2018-04-21] MEDS: Magnesium Oxide 400 mg Tab UD PO SCH ×2 (08:40→17:01)
[2018-04-21] MEDS: Enoxaparin 40 mg Syringe SC SCH (08:40)
--- NOTE | 2018-04-21 13:23 | PSY.TMCNF ---
Nursing - Vital Signs Vital Signs (Last 8 hours): Vital Signs 04/21/18 04/21/18 04/21/18 07:48 08:39 09:00 Temperature 97.9 F 97.9 F Pulse Rate 66 66 66 Respiratory 22 22 Rate Blood Pressure 144/98 H 144/98 H 144/98 H O2 Sat by Pulse 100 Oximetry Pain: 0 - Medications/Other Issues Comment: Pt at moderate nutritional risk. goals: 1. Pt to consume 75-100% of meals(not met, continue). 2. Deter wt loss(not met, continue). Follow-up due on 04/23/2018 - Consults Comment: Dr. Otero, Dr. Orozco and Dr. Dean - Toileting Toileting: Contact Guard - Bladder Management Bladder Pattern: Normal Voiding Method: Toilet Bladder Management: Supervision - Bowel Management Bowel Pattern: Normal Bowel Management: Supervision - Transfers Transfers: Contact Guard - ADL's ADL's: Supervision - Pain Management Comments: Denies pain - Patient/Family Teaching Comments: Post CVA care, Safety - Goals/Time Frame Comments: Per multidiscplinary team Physical Therapy - Bed Mobility Bed Mobility: Contact Guard - Transfers Wheelchair to Mat: Contact Guard Sit to Stand: Contact Guard - Ambulation Level of Assistance: Contact Guard Distance (ft.): 120 Assistive Devices: Rolling Walker - Stair Negotiation Stairs: Level of Assistance: Minimal Assistance Number of Stairs: 6 Handrails: Bilateral - Standing Balance Static Stand: Supervision Dynamic Stand: Contact Guard Assist - Pain Pain (assessed during therapy session): 0 - Insight/Carryover Insight/Carryover: Good - Patient/Family Education Comment: safety, CVA recovery - Assessment/Plan Assessment: Pt currently requires CGA for bed mobility and transfers, CGA for ambulating with RW, and min A for stair negotiation. Pt will continue to benefit from skilled PT interventions to address deficits, reduce fall risk,and maximize functional independence. Plan to complete caregiver training prior to d /c. - Goals Timeframe: 2 weeks Goals: Sit < > supine mod I. SIt < > stand mod I with RW. Pt will ambulate 200 ft mod I with RW - Provider Therapist: jluis License Number: [id number] Occupational Therapy - Arousal/Attention/Orientation Level of Consciousness: Awake, Alert Patient Orientation: Person, Place, Time, Appropriate to Age, Appropriate to Situation Assessment Comment: Requires increased time to express herself secondary to slowed speech at this time. - ADL/IADL Self Feeding: Supervision, Set-up Help Grooming: Set-up Help Bathing-Upper Extremity: Supervision, Set-up Help Bathing-Lower Extremity: Contact Guard Dressing-Upper Extremity: Supervision Dressing-Lower Extremity: Contact Guard - Sitting Balance Static Sitting: Supervision Dynamic Sitting: Requires supervision - Transfers Wheelchair to Bed Transfers: Supervision, Verbal Cues, Set-up Help, Contact Guard Toilet Transfers: Supervision, Verbal Cues, Set-up Help, Contact Guard Tub Transfers: Minimal Assistance - Upper Extremity Status Right Upper Extremity Comment: poor grasp strength /dexterity . requires extended time for FM tasks Left Upper Extremity Comment: (L) active shoulder flexion is limited; however is functional. - Pain Pain (assessed during therapy session): 0 - Insight/Carryover Insight/Carryover: Good - Patient/Family Education Comment: safety, CVA recovery - Assessment/Plan Assessment: Pt currently requires CGA for bed mobility and transfers, CGA for ambulating with RW, and min A for stair negotiation. Pt will continue to benefit from skilled PT interventions to address deficits, reduce fall risk,and maximize functional independence. Plan to complete caregiver training prior to d /c. - Goals Timeframe: 2 weeks Goals: Sit < > supine mod I. SIt < > stand mod I with RW. Pt will ambulate 200 ft mod I with RW - Provider Therapist: evan License Number: [id number] Speech Therapy - Consult Information Patient on Program: Yes Medical Diagnosis: CVA Treatment Diagnosis: -mild dysarthria. -mild expressive language - Assessment Expressive Language Impairment: Mild Speech/Articulation Impairment: Mild - Plan Assessment: Pt currently requires CGA for bed mobility and transfers, CGA for ambulating with RW, and min A for stair negotiation. Pt will continue to benefit from skilled PT interventions to address deficits, reduce fall risk,and maximize functional independence. Plan to complete caregiver training prior to d /c. - Provider Therapist: Kate Obrien License Number: [id number] Recreational Therapy - Participation Participation: Participates in Individual and/or Group Sessions - Attendance Attendance: 3-5 times per week - Activities Leisure Activities: Cards and Games - Socialization Level of Socialization: Initiates/interacts freely with care givers and peer - Diversional Time Diversional Time: enjoys playing Apptive, participates in recreation therapy sessions - Assessment Assessment/Plan: Pt currently requires CGA for bed mobility and transfers, CGA for ambulating with RW, and min A for stair negotiation. Pt will continue to benefit from skilled PT interventions to address deficits, reduce fall risk,and maximize functional independence. Plan to complete caregiver training prior to d /c. - Provider Therapist: Ofe No, [employer] #[id number] Nutrition - Current Diet Current Diet/ Supplement/ Feedings: 2 gram Na ensure plus 8 ounces 1 per day( 350 kcal and 13 grams of protein) - Appetite Percent Meal Consumed: 75-100% - Comments Comments: Post CVA care, Safety - Assessment/Goals/Time Frame Assessment/Goals/Time Frame: Pt at moderate nutritional risk. goals: 1. Pt to consume 75-100% of meals(not met, continue). 2. Deter wt loss(not met, continue). Follow-up due on 04/23/2018 - Provider Provider: Anna Reina RD Case Management - Discharge Plan Discharge Plan: Home alone Rehabilitation Plan - Treatment Plan Treatment Plan: Physical Therapy, Occupational Therapy, Speech, Dietary, Patient /Family Education - Discharge Plan Estimated Date of Discharge: 04/24/18 Discharge to: Home
--- NOTE | 2018-04-21 14:01 | CP.PCM.PN ---
Subjective - Date & Time of Evaluation Date of Evaluation: 04/21/18 Time of Evaluation: 13:59 - Subjective Subjective: Patient seen in the room a little nervous about d/c home on the no pain or fever improved gait and ADLs has been an excellent acute rehab patient and will be able to d/c home got life alert as well and will be in adult daycare with outpatient rehab Objective - Vital Signs/Intake and Output Vital Signs (last 24 hours): Temp Pulse Resp BP Pulse Ox 97.9 F 66 22 144/98 H 100 04/21/18 09:00 04/21/18 09:00 04/21/18 09:00 04/21/18 09:00 04/21/18 07:48 - Medications Medications: Current Medications Acetaminophen (Tylenol 325mg Tab) 650 mg PO Q6 PRN PRN Reason: Pain scale 1-10 Last Admin: 04/19/18 10:55 Dose: 650 mg Albuterol/Ipratropium (Duoneb 3 Mg/0.5 Mg (3 Ml) Ud) 3 ml IH RQ6 [facility] Last Admin: 04/21/18 13:50 Dose: Not Given Artificial Tears (Artificial Tears) 2 drop OU HS PRN PRN Reason: Dry eyes Last Admin: 04/15/18 08:22 Dose: 2 drop Aspirin (Aspirin Chewable) 81 mg PO DAILY [facility] Last Admin: 04/21/18 08:39 Dose: 81 mg Atorvastatin Calcium (Lipitor) 80 mg PO HS [facility] Last Admin: 04/20/18 21:43 Dose: 80 mg Bismuth Subsalicylate (Pepto Bismol) 262 mg PO Q8 PRN PRN Reason: Indigestion Last Admin: 04/16/18 15:30 Dose: 262 mg Clopidogrel Bisulfate (Plavix) 75 mg PO DAILY [facility] Last Admin: 04/21/18 08:41 Dose: 75 mg Enoxaparin Sodium (Lovenox) 40 mg SC DAILY [facility] PRN Reason: Protocol Last Admin: 04/21/18 08:40 Dose: 40 mg Fluticasone Propionate (Flonase) 1 spr ELSIE BID [facility] Last Admin: 04/21/18 08:39 Dose: 1 spr Hydrocortisone (Anusol-Hc) 1 applic [place] BID [facility] Last Admin: 04/21/18 08:37 Dose: 1 applic Losartan Potassium (Cozaar) 50 mg PO DAILY [facility] Last Admin: 04/21/18 08:39 Dose: 50 mg Magnesium Hydroxide (Milk Of Magnesia) 30 ml PO DAILY PRN PRN Reason: Constipation Magnesium Oxide (Mag-Ox) 400 mg PO BID [facility] Last Admin: 04/21/18 08:40 Dose: 400 mg Ondansetron HCl (Zofran Tab) 4 mg PO Q8 PRN PRN Reason: Nausea/Vomiting Pantoprazole Sodium (Protonix Ec Tab) 40 mg PO 0630 [facility] Last Admin: 04/21/18 07:05 Dose: 40 mg Sennosides (Senokot Tab) 17.2 mg PO HS [facility] Last Admin: 04/20/18 21:43 Dose: Not Given Sertraline HCl (Zoloft) 50 mg PO DAILY [facility] Last Admin: 04/21/18 08:41 Dose: 50 mg Sodium Chloride ([place] Nasal [place]) 2 sprays ELSIE Q4 PRN PRN Reason: Nasal congestion Last Admin: 04/13/18 21:49 Dose: 2 spr Tobramycin/Dexamethasone (Tobradex Opht Susp) 1 drop OU QID [facility] Stop: 04/26/18 17:01 Last Admin: 04/21/18 12:57 Dose: 1 drop Valproate Sodium (Depakene Cap) 500 mg PO Q12 [facility] Last Admin: 04/21/18 08:39 Dose: 500 mg - Labs Labs: 04/18/18 05:20 04/18/18 05:20 PT 12.1 Seconds (9.8-13.1) 04/10/18 06:30 INR 1.1 (0.9-1.2) 04/10/18 06:30 APTT 36.9 Seconds (25.6-37.1) 04/10/18 06:30
[2018-04-21] MEDS: Bismuth Subsalicylate 262 mg Chew Tab PO PRN (19:54)
[2018-04-22] MEDS: Albuterol-Ipratrop 3 mg / 0.5 (3 ml) UD IH SCH ×4 (01:18→19:35)
[2018-04-22 06:41] LABS: HEMOGLOBIN 11.7 g/dL (12.0-16.0); MEAN CELL VOLUME 85.8 fl (81.0-99.0); MEAN CORPUSCULAR HEMOGLOBIN 28.9 pg (27.0-31.0); MEAN CORPUSCULAR HGB CONC 33.7 g/dL (33.0-37.0); RBC 4.05 Mil/uL (3.80-5.20); RED CELL DISTRIBUTION WIDTH 16.2 % (11.5-14.5); WHITE BLOOD COUNT 4.8 K/uL (4.8-10.8)
[2018-04-22] MEDS: Pantoprazole 40 mg EC Tab PO SCH (06:45)
[2018-04-22 07:46] LABS: BLOOD UREA NITROGEN 15 mg/dl (7-17); CALCIUM 9.9 mg/dL (8.4-10.2); GFR AFRICAN-AMERICAN > 60; GFR NON-AFRICAN AMERICAN > 60
[2018-04-22] MEDS: Dexamethasone/Tobramycin Ophth Susp OU SCH ×4 (08:59→21:32)
[2018-04-22] MEDS: Hydrocortisone 2.5% (Rectal) CREAM PR SCH (08:59)
[2018-04-22] MEDS: Enoxaparin 40 mg Syringe SC SCH (09:00)
[2018-04-22] MEDS: Magnesium Oxide 400 mg Tab UD PO SCH ×2 (09:00→16:37)
[2018-04-22] MEDS ORDERED: Hydrocortisone 2.5% (Rectal) CREAM PR PRN (10:08)
--- NOTE | 2018-04-22 10:41 | CP.PCM.PN ---
Subjective - Date & Time of Evaluation Date of Evaluation: 04/22/18 Time of Evaluation: 10:40 - Subjective Subjective: Ms. Stewart was seen and examined at the bedside. She is alert, oriented in all spheres. She is alert, oriented still with episode of anxiety. She denies any dizziness, nausea, or vomiting. She states of practicing relaxation technique when she becomes anxious. She is able to participate during her therapy session. There was no untoward events overnight. Objective - Vital Signs/Intake and Output Vital Signs (last 24 hours): Temp Pulse Resp BP Pulse Ox 97.3 F L 85 19 143/95 H 98 04/22/18 07:43 04/22/18 09:00 04/22/18 07:43 04/22/18 09:00 04/22/18 07:43 - Medications Medications: Current Medications Acetaminophen (Tylenol 325mg Tab) 650 mg PO Q6 PRN PRN Reason: Pain scale 1-10 Last Admin: 04/19/18 10:55 Dose: 650 mg Albuterol/Ipratropium (Duoneb 3 Mg/0.5 Mg (3 Ml) Ud) 3 ml IH RQ6 [facility] Last Admin: 04/22/18 07:39 Dose: Not Given Artificial Tears (Artificial Tears) 2 drop OU HS PRN PRN Reason: Dry eyes Last Admin: 04/15/18 08:22 Dose: 2 drop Aspirin (Aspirin Chewable) 81 mg PO DAILY [facility] Last Admin: 04/22/18 09:01 Dose: 81 mg Atorvastatin Calcium (Lipitor) 80 mg PO HS [facility] Last Admin: 04/21/18 21:23 Dose: 80 mg Bismuth Subsalicylate (Pepto Bismol) 262 mg PO Q8 PRN PRN Reason: Indigestion Last Admin: 04/21/18 19:54 Dose: 262 mg Clopidogrel Bisulfate (Plavix) 75 mg PO DAILY [facility] Last Admin: 04/22/18 08:59 Dose: 75 mg Enoxaparin Sodium (Lovenox) 40 mg SC DAILY [facility] PRN Reason: Protocol Last Admin: 04/22/18 09:00 Dose: 40 mg Fluticasone Propionate (Flonase) 1 spr ELSIE BID [facility] Last Admin: 04/22/18 08:59 Dose: 1 spr Hydrocortisone (Anusol-Hc) 1 applic [place] BID PRN PRN Reason: Hemorrhoids Losartan Potassium (Cozaar) 50 mg PO DAILY [facility] Last Admin: 04/22/18 09:00 Dose: 50 mg Magnesium Hydroxide (Milk Of Magnesia) 30 ml PO DAILY PRN PRN Reason: Constipation Magnesium Oxide (Mag-Ox) 400 mg PO BID [facility] Last Admin: 04/22/18 09:00 Dose: 400 mg Ondansetron HCl (Zofran Tab) 4 mg PO Q8 PRN PRN Reason: Nausea/Vomiting Pantoprazole Sodium (Protonix Ec Tab) 40 mg PO 0630 [facility] Last Admin: 04/22/18 06:45 Dose: 40 mg Sennosides (Senokot Tab) 17.2 mg PO HS [facility] Last Admin: 04/21/18 21:23 Dose: 17.2 mg Sertraline HCl (Zoloft) 50 mg PO DAILY [facility] Last Admin: 04/22/18 09:00 Dose: 50 mg Sodium Chloride ([place] Nasal [place]) 2 sprays ELSIE Q4 PRN PRN Reason: Nasal congestion Last Admin: 04/13/18 21:49 Dose: 2 spr Tobramycin/Dexamethasone (Tobradex Opht Susp) 1 drop OU QID [facility] Stop: 04/26/18 17:01 Last Admin: 04/22/18 08:59 Dose: 1 drop Valproate Sodium (Depakene Cap) 500 mg PO Q12 [facility] Last Admin: 04/22/18 08:59 Dose: 500 mg - Labs Labs: 04/22/18 05:25 04/22/18 05:25 PT 12.1 Seconds (9.8-13.1) 04/10/18 06:30 INR 1.1 (0.9-1.2) 04/10/18 06:30 APTT 36.9 Seconds (25.6-37.1) 04/10/18 06:30 - Constitutional Appears: No Acute Distress - Head Exam Head Exam: NORMAL INSPECTION - Eye Exam Pupil Exam: PERRL - Neurological Exam Neurological Exam: Alert, Awake, Oriented x3 Neuro motor strength exam: Left Upper Extremity: 5, Right Upper Extremity: 3, Left Lower Extremity: 5, Right Lower Extremity: 3 Additional comments: neurological unchanged from previous examination. Assessment and Plan (1) CVA (cerebral vascular accident) Assessment & Plan: Case discussed by Dr. Marion, continue all current medical, psychiatry, physical , occupational, and speech therapies. Recommend hydration, keep head of bed elevated at least 30 degrees while in bed, blood pressure, glycemic control. Status: Acute
--- NOTE | 2018-04-22 11:06 | CP.PCM.PN ---
Subjective - Date & Time of Evaluation Date of Evaluation: 04/22/18 Time of Evaluation: 11:15 - Subjective Subjective: Patient seen and examined. Claimed she is improving with therapy. Informed that 7th grade social studies teacher is making arrangement so she would not be alone during the day when she gets home. Objective - Vital Signs/Intake and Output Vital Signs (last 24 hours): Temp Pulse Resp BP Pulse Ox 97.3 F L 85 19 143/95 H 98 04/22/18 07:43 04/22/18 09:00 04/22/18 07:43 04/22/18 09:00 04/22/18 07:43 - Medications Medications: Current Medications Acetaminophen (Tylenol 325mg Tab) 650 mg PO Q6 PRN PRN Reason: Pain scale 1-10 Last Admin: 04/19/18 10:55 Dose: 650 mg Albuterol/Ipratropium (Duoneb 3 Mg/0.5 Mg (3 Ml) Ud) 3 ml IH RQ6 [facility] Last Admin: 04/22/18 07:39 Dose: Not Given Artificial Tears (Artificial Tears) 2 drop OU HS PRN PRN Reason: Dry eyes Last Admin: 04/15/18 08:22 Dose: 2 drop Aspirin (Aspirin Chewable) 81 mg PO DAILY [facility]S [facility] Last Admin: 04/22/18 09:01 Dose: 81 mg Atorvastatin Calcium (Lipitor) 80 mg PO HS [facility] 234 BEDS AT [facility] Last Admin: 04/21/18 21:23 Dose: 80 mg Bismuth Subsalicylate (Pepto Bismol) 262 mg PO Q8 PRN PRN Reason: Indigestion Last Admin: 04/21/18 19:54 Dose: 262 mg Clopidogrel Bisulfate (Plavix) 75 mg PO DAILY [facility] 234 [facility]S AT [facility] Last Admin: 04/22/18 08:59 Dose: 75 mg Enoxaparin Sodium (Lovenox) 40 mg SC DAILY [facility] 234 BEDS AT [facility] PRN Reason: Protocol Last Admin: 04/22/18 09:00 Dose: 40 mg Fluticasone Propionate (Flonase) 1 spr ELSIE BID [facility] 234 BEDS AT [facility] Last Admin: 04/22/18 08:59 Dose: 1 spr Hydrocortisone (Anusol-Hc) 1 applic [place] BID PRN PRN Reason: Hemorrhoids Losartan Potassium (Cozaar) 50 mg PO DAILY [facility] 234 BEDS AT [facility] Last Admin: 04/22/18 09:00 Dose: 50 mg Magnesium Hydroxide (Milk Of Magnesia) 30 ml PO DAILY PRN PRN Reason: Constipation Magnesium Oxide (Mag-Ox) 400 mg PO BID [facility] 234 BEDS AT [facility] Last Admin: 04/22/18 09:00 Dose: 400 mg Ondansetron HCl (Zofran Tab) 4 mg PO Q8 PRN PRN Reason: Nausea/Vomiting Pantoprazole Sodium (Protonix Ec Tab) 40 mg PO 0630 [facility] 234 B[facility]S AT [facility] Last Admin: 04/22/18 06:45 Dose: 40 mg Sennosides (Senokot Tab) 17.2 mg PO HS [facility] 234 BEDS AT [facility] Last Admin: 04/21/18 21:23 Dose: 17.2 mg Sertraline HCl (Zoloft) 50 mg PO DAILY [facility] 234 BEDS AT [facility] Last Admin: 04/22/18 09:00 Dose: 50 mg Sodium Chloride ([place] Nasal [place]) 2 sprays ELSIE Q4 PRN PRN Reason: Nasal congestion Last Admin: 04/13/18 21:49 Dose: 2 spr Tobramycin/Dexamethasone (Tobradex Opht Susp) 1 drop OU QID [facility] 234 BEDS AT [facility] Stop: 04/26/18 17:01 Last Admin: 04/22/18 08:59 Dose: 1 drop Valproate Sodium (Depakene Cap) 500 mg PO Q12 [facility] 234 BEDS AT [facility] Last Admin: 04/22/18 08:59 Dose: 500 mg - Labs Labs: 04/22/18 05:25 04/22/18 05:25 PT 12.1 Seconds (9.8-13.1) 04/10/18 06:30 INR 1.1 (0.9-1.2) 04/10/18 06:30 APTT 36.9 Seconds (25.6-37.1) 04/10/18 06:30 - Constitutional Appears: No Acute Distress - Head Exam Head Exam: ATRAUMATIC - Eye Exam Eye Exam: absent: Scleral icterus - ENT Exam ENT Exam: Mucous Membranes Moist - Neck Exam Neck Exam: absent: Meningismus - Respiratory Exam Respiratory Exam: absent: Rales, Rhonchi, Wheezes, Respiratory Distress - Cardiovascular Exam Cardiovascular Exam: REGULAR RHYTHM, +S1, +S2 - GI/Abdominal Exam GI & Abdominal Exam: Soft. absent: Tenderness - Rectal Exam Rectal Exam: Deferred - Neurological Exam Neurological Exam: Alert, Oriented x3 - Psychiatric Exam Psychiatric exam: Normal Affect - Skin Skin Exam: Dry, Intact Assessment and Plan - Assessment and Plan (Free Text) Assessment: 67 years old female with history of HTN, HLD and 2 previous CVA admitted at [facility] [place] with slurred speech and right facial weakness after a fall. She was diagnosed with Acute CVA and when neurologically and hemodynamically stable was transferred to [facility] for admission to Acute Rehab for continuation of therapy. 1. Acute CVA with dysarthria and right facial weakness recurrent CVA since 2013 and 2016 continue PT/OT/speech therapy physiatry consult with Dr Orozco continue ASA, Plavix, high dose Lipitor and BP management 2. HTN BP stable continue Losartan 3. HLD continue Lipitor 80mg PO HS 4. Depression continue Zoloft 5. CAD continue ASA, Lipitor and Plavix 6. DVT prophylaxis continue Lovenox
[2018-04-23] MEDS: Albuterol-Ipratrop 3 mg / 0.5 (3 ml) UD IH SCH ×4 (03:00→19:27)
[2018-04-23] MEDS: Pantoprazole 40 mg EC Tab PO SCH (06:33)
[2018-04-23] MEDS: Enoxaparin 40 mg Syringe SC SCH (08:08)
[2018-04-23] MEDS: Magnesium Oxide 400 mg Tab UD PO SCH ×2 (08:09→16:48)
[2018-04-23] MEDS: Dexamethasone/Tobramycin Ophth Susp OU SCH ×4 (08:11→21:07)
--- NOTE | 2018-04-23 09:32 | CP.PCM.PN ---
Subjective - Date & Time of Evaluation Date of Evaluation: 04/23/18 Time of Evaluation: 09:31 - Subjective Subjective: Ms. Stewart was seen and examined at the bedside. She is alert, oriented in all spheres. She is alert, oriented still with episode of anxiety. She denies any dizziness, nausea, or vomiting. She is able to perform some ADL such as coming her hair, brushing her teeth. She states of practicing relaxation technique when she becomes anxious. She is able to participate during her therapy session. There was no untoward events overnight. Objective - Vital Signs/Intake and Output Vital Signs (last 24 hours): Temp Pulse Resp BP Pulse Ox 98.2 F 80 18 146/98 H 96 04/23/18 08:18 04/23/18 08:18 04/23/18 08:18 04/23/18 08:18 04/23/18 08:18 - Medications Medications: Current Medications Acetaminophen (Tylenol 325mg Tab) 650 mg PO Q6 PRN PRN Reason: Pain scale 1-10 Last Admin: 04/19/18 10:55 Dose: 650 mg Albuterol/Ipratropium (Duoneb 3 Mg/0.5 Mg (3 Ml) Ud) 3 ml IH RQ6 [facility] Last Admin: 04/23/18 07:38 Dose: Not Given Artificial Tears (Artificial Tears) 2 drop OU HS PRN PRN Reason: Dry eyes Last Admin: 04/15/18 08:22 Dose: 2 drop Aspirin (Aspirin Chewable) 81 mg PO DAILY [facility] Last Admin: 04/23/18 08:10 Dose: 81 mg Atorvastatin Calcium (Lipitor) 80 mg PO HS [facility] Last Admin: 04/22/18 21:32 Dose: 80 mg Bismuth Subsalicylate (Pepto Bismol) 262 mg PO Q8 PRN PRN Reason: Indigestion Last Admin: 04/21/18 19:54 Dose: 262 mg Clopidogrel Bisulfate (Plavix) 75 mg PO DAILY [facility] Last Admin: 04/23/18 08:11 Dose: 75 mg Enoxaparin Sodium (Lovenox) 40 mg SC DAILY [facility] PRN Reason: Protocol Last Admin: 04/23/18 08:08 Dose: 40 mg Fluticasone Propionate (Flonase) 1 spr ELSIE BID [facility] Last Admin: 04/23/18 08:10 Dose: 1 spr Hydrocortisone (Anusol-Hc) 1 applic [place] BID PRN PRN Reason: Hemorrhoids Losartan Potassium (Cozaar) 50 mg PO DAILY [facility] Last Admin: 04/23/18 08:05 Dose: 50 mg Magnesium Hydroxide (Milk Of Magnesia) 30 ml PO DAILY PRN PRN Reason: Constipation Magnesium Oxide (Mag-Ox) 400 mg PO BID [facility] Last Admin: 04/23/18 08:09 Dose: 400 mg Ondansetron HCl (Zofran Tab) 4 mg PO Q8 PRN PRN Reason: Nausea/Vomiting Pantoprazole Sodium (Protonix Ec Tab) 40 mg PO 0630 [facility] Last Admin: 04/23/18 06:33 Dose: 40 mg Sennosides (Senokot Tab) 17.2 mg PO HS [facility] Last Admin: 04/22/18 21:32 Dose: Not Given Sertraline HCl (Zoloft) 50 mg PO DAILY [facility] Last Admin: 04/23/18 08:11 Dose: 50 mg Sodium Chloride ([place] Nasal [place]) 2 sprays ELSIE Q4 PRN PRN Reason: Nasal congestion Last Admin: 04/13/18 21:49 Dose: 2 spr Tobramycin/Dexamethasone (Tobradex Opht Susp) 1 drop OU QID [facility] Stop: 04/26/18 17:01 Last Admin: 04/23/18 08:11 Dose: 1 drop Valproate Sodium (Depakene Cap) 500 mg PO Q12 [facility] Last Admin: 04/23/18 08:10 Dose: 500 mg - Labs Labs: 04/22/18 05:25 04/22/18 05:25 PT 12.1 Seconds (9.8-13.1) 04/10/18 06:30 INR 1.1 (0.9-1.2) 04/10/18 06:30 APTT 36.9 Seconds (25.6-37.1) 04/10/18 06:30 - Constitutional Appears: No Acute Distress - Head Exam Head Exam: NORMAL INSPECTION - Eye Exam Pupil Exam: PERRL - Neurological Exam Neurological Exam: Alert, Awake, Oriented x3 Neuro motor strength exam: Left Upper Extremity: 5, Right Upper Extremity: 4, Left Lower Extremity: 5, Right Lower Extremity: 4 Additional comments: Neurological unchanged from previous examination. Assessment and Plan (1) CVA (cerebral vascular accident) Assessment & Plan: Case discussed by Dr. Marion, continue all current medical, psychiatry, physical , occupational, and speech therapies. Recommend hydration, keep head of bed elevated at least 30 degrees while in bed, blood pressure, glycemic control. Status: Acute
[2018-04-23 23:36] VITALS: RESP 20
[2018-04-24] MEDS: Albuterol-Ipratrop 3 mg / 0.5 (3 ml) UD IH SCH ×3 (00:59→13:08)
[2018-04-24] MEDS: Pantoprazole 40 mg EC Tab PO SCH (05:59)
[2018-04-24] MEDS: Magnesium Oxide 400 mg Tab UD PO SCH (08:03)
[2018-04-24] MEDS: Enoxaparin 40 mg Syringe SC SCH (08:04)
[2018-04-24] MEDS: Dexamethasone/Tobramycin Ophth Susp OU SCH (08:04)
[2018-04-24 08:05] VITALS: BP 137/95; PULSE 80
[2018-04-24 08:19] VITALS: TEMP 98.1; O2SAT 100
--- NOTE | 2018-04-24 09:33 | CP.PCM.PN ---
Subjective - Date & Time of Evaluation Date of Evaluation: 04/24/18 Time of Evaluation: 09:33 - Subjective Subjective: Ms. Stewart was seen and examined at the bedside. She is alert, oriented in all spheres. She is alert, oriented still with episode of anxiety. She denies any dizziness, nausea, or vomiting. She is able to perform some ADL such as coming her hair, brushing her teeth. She states of practicing relaxation technique when she becomes anxious. She is able to participate during her therapy session. She is excited to go home today.There was no untoward events overnight. Objective - Vital Signs/Intake and Output Vital Signs (last 24 hours): Temp Pulse Resp BP Pulse Ox 98.1 F 80 20 137/95 H 100 04/24/18 08:15 04/24/18 08:15 04/24/18 08:15 04/24/18 08:15 04/24/18 08:15 - Medications Medications: Current Medications Acetaminophen (Tylenol 325mg Tab) 650 mg PO Q6 PRN PRN Reason: Pain scale 1-10 Last Admin: 04/19/18 10:55 Dose: 650 mg Albuterol/Ipratropium (Duoneb 3 Mg/0.5 Mg (3 Ml) Ud) 3 ml IH RQ6 [facility] Last Admin: 04/24/18 07:42 Dose: Not Given Artificial Tears (Artificial Tears) 2 drop OU HS PRN PRN Reason: Dry eyes Last Admin: 04/15/18 08:22 Dose: 2 drop Aspirin (Aspirin Chewable) 81 mg PO DAILY [facility] Last Admin: 04/24/18 08:03 Dose: 81 mg Atorvastatin Calcium (Lipitor) 80 mg PO HS [facility] Last Admin: 04/23/18 21:06 Dose: 80 mg Bismuth Subsalicylate (Pepto Bismol) 262 mg PO Q8 PRN PRN Reason: Indigestion Last Admin: 04/21/18 19:54 Dose: 262 mg Clopidogrel Bisulfate (Plavix) 75 mg PO DAILY [facility] Last Admin: 04/24/18 08:03 Dose: 75 mg Enoxaparin Sodium (Lovenox) 40 mg SC DAILY [facility] PRN Reason: Protocol Last Admin: 04/24/18 08:04 Dose: 40 mg Fluticasone Propionate (Flonase) 1 spr ELSIE BID [facility] Last Admin: 04/24/18 08:04 Dose: 1 spr Hydrocortisone (Anusol-Hc) 1 applic [place] BID PRN PRN Reason: Hemorrhoids Losartan Potassium (Cozaar) 50 mg PO DAILY [facility] Last Admin: 04/24/18 08:03 Dose: 50 mg Magnesium Hydroxide (Milk Of Magnesia) 30 ml PO DAILY PRN PRN Reason: Constipation Magnesium Oxide (Mag-Ox) 400 mg PO BID [facility] Last Admin: 04/24/18 08:03 Dose: 400 mg Ondansetron HCl (Zofran Tab) 4 mg PO Q8 PRN PRN Reason: Nausea/Vomiting Pantoprazole Sodium (Protonix Ec Tab) 40 mg PO 0630 [facility] Last Admin: 04/24/18 05:59 Dose: 40 mg Sennosides (Senokot Tab) 17.2 mg PO HS [facility] Last Admin: 04/23/18 21:08 Dose: Not Given Sertraline HCl (Zoloft) 50 mg PO DAILY [facility] Last Admin: 04/24/18 08:03 Dose: 50 mg Sodium Chloride ([place] Nasal [place]) 2 sprays ELSIE Q4 PRN PRN Reason: Nasal congestion Last Admin: 04/13/18 21:49 Dose: 2 spr Tobramycin/Dexamethasone (Tobradex Opht Susp) 1 drop OU QID [facility] Stop: 04/26/18 17:01 Last Admin: 04/24/18 08:04 Dose: 1 drop Valproate Sodium (Depakene Cap) 500 mg PO Q12 [facility] Last Admin: 04/24/18 08:03 Dose: 500 mg - Labs Labs: 04/22/18 05:25 04/22/18 05:25 PT 12.1 Seconds (9.8-13.1) 04/10/18 06:30 INR 1.1 (0.9-1.2) 04/10/18 06:30 APTT 36.9 Seconds (25.6-37.1) 04/10/18 06:30 - Constitutional Appears: No Acute Distress - Head Exam Head Exam: NORMAL INSPECTION - Eye Exam Pupil Exam: PERRL - Neurological Exam Neurological Exam: Alert, Awake, Oriented x3 Neuro motor strength exam: Left Upper Extremity: 5, Right Upper Extremity: 4, Left Lower Extremity: 5, Right Lower Extremity: 4 Additional comments: neurological examination from previous examination. Assessment and Plan (1) CVA (cerebral vascular accident) Assessment & Plan: Case discussed by Dr. Marion, continue all current medical, psychiatry, physical , occupational, and speech therapies. Recommend hydration, keep head of bed elevated at least 30 degrees while in bed, blood pressure, glycemic control. Patient request to follow up with Dr. Blandon since she has been seeing him in [facility] [place]. Status: Acute
--- NOTE | 2018-04-24 12:56 | CP.PCM.DIS ---
Provider - Provider Date of Admission: 04/09/18 23:13 Attending physician: Edson Stratton Primary care physician: Sanchez Zuniga MD Consults: Neurology- Dr. Otero, Dr. Marion Ophthalmology- Dr. Dean Physiatry- Dr. Orozco Psychiatry- Dr. Fish Time Spent in preparation of Discharge (in minutes): 25 Hospital Course - Lab Results Lab Results: Most Recent Lab Values WBC 4.8 K/uL (4.8-10.8) 04/22/18 05:25 RBC 4.05 Mil/uL (3.80-5.20) 04/22/18 05:25 Hgb 11.7 g/dL (12.0-16.0) L 04/22/18 05:25 Hct 34.8 % (34.0-47.0) 04/22/18 05:25 MCV 85.8 fl (81.0-99.0) 04/22/18 05:25 MCH 28.9 pg (27.0-31.0) 04/22/18 05:25 MCHC 33.7 g/dL (33.0-37.0) 04/22/18 05:25 RDW 16.2 % (11.5-14.5) H 04/22/18 05:25 Plt Count 209 K/uL (130-400) 04/22/18 05:25 MPV 8.8 fl (7.2-11.7) 04/10/18 06:30 Neut % (Auto) 55.9 % (50.0-75.0) 04/10/18 06:30 Lymph % (Auto) 30.3 % (20.0-40.0) 04/10/18 06:30 [place] % (Auto) 8.3 % (0.0-10.0) 04/10/18 06:30 Eos % (Auto) 3.5 % (0.0-4.0) 04/10/18 06:30 Baso % (Auto) 2.0 % (0.0-2.0) 04/10/18 06:30 Neut # (Auto) 2.9 K/uL (1.8-7.0) 04/10/18 06:30 Lymph # (Auto) 1.6 K/uL (1.0-4.3) 04/10/18 06:30 [place] # (Auto) 0.4 K/uL (0.0-0.8) 04/10/18 06:30 Eos # (Auto) 0.2 K/uL (0.0-0.7) 04/10/18 06:30 Baso # (Auto) 0.1 K/uL (0.0-0.2) 04/10/18 06:30 PT 12.1 Seconds (9.8-13.1) 04/10/18 06:30 INR 1.1 (0.9-1.2) 04/10/18 06:30 APTT 36.9 Seconds (25.6-37.1) 04/10/18 06:30 Sodium 139 mmol/l (132-148) 04/22/18 05:25 Potassium 4.3 MMOL/L (3.6-5.0) 04/22/18 05:25 Chloride 105 mmol/L (98-107) 04/22/18 05:25 Carbon Dioxide 23 mmol/L (22-30) 04/22/18 05:25 Anion Gap 15 (10-20) 04/22/18 05:25 BUN 15 mg/dl (7-17) 04/22/18 05:25 Creatinine 0.8 mg/dl (0.7-1.2) 04/22/18 05:25 Est GFR ( Amer) > 60 04/22/18 05:25 Est GFR (Non-Af Amer) > 60 04/22/18 05:25 Random Glucose 81 mg/dL (65-105) 04/22/18 05:25 Calcium 9.9 mg/dL (8.4-10.2) 04/22/18 05:25 Phosphorus 3.9 mg/dl (2.5-4.5) 04/10/18 06:30 Magnesium 1.8 MG/DL (1.6-2.3) 04/10/18 06:30 Total Bilirubin 0.9 mg/dl (0.2-1.3) 04/10/18 06:30 AST 42 U/L (14-36) H 04/10/18 06:30 ALT 39 U/L (9-52) 04/10/18 06:30 Alkaline Phosphatase 91 U/L (38-126) 04/10/18 06:30 Total Protein 7.5 G/DL (6.3-8.2) 04/10/18 06:30 Albumin 4.3 g/dL (3.5-5.0) 04/10/18 06:30 Globulin 3.2 gm/dL (2.2-3.9) 04/10/18 06:30 Albumin/Globulin Ratio 1.4 (1.0-2.1) 04/10/18 06:30 - Hospital Course Hospital Course: 67 year old female with history of HTN, HLD and 2 previous CVA last being in 2012, admitted at [facility] with slurred speech and right facial weakness after a fall. She was diagnosed with Acute CVA with small left العلي radiata strple seen on MRI,and when neurologically and hemodynamically stable was transferred to [facility] for admission to Acute Rehab for continuation of therapy. During her time in therapy, the patient participated well and regained some of her strength. 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 She is being discharged to home today and arrangements are made for continuation of her therapies as outpatient. 1. Acute CVA with dysarthria and right facial weakness recurrent CVA since 2013 and 2015 continue PT/OT/speech therapy outpatient physiatry consult with Dr Orozco continue ASA, Plavix, high dose Lipitor and BP management outpatient Neurology consultation with Dr. Otero/Dr. Marion 2. HTN BP stable continue Losartan 3. HLD continue Lipitor 80mg PO HS 4. Depression continue Zoloft Was seen by Dr. 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 Dean as outpatient 6. CAD continue ASA, Lipitor and Plavix 7. DVT prophylaxis Received Lovenox while in rehab Discharge Exam - Head Exam Head Exam: NORMAL INSPECTION - Additional Findings Additional findings: Physical exam: Constitutional- cooperative, awake, alert Head- NCAT, PERRL Eye- PERRL, EOMI ENT- normal exam, MMM. Neck- normal inspection, supple, no JVD Respiratory- CTAB, no wheezes rales rhonchi Cardiovascular- RRR, +S1, +S2 no MRG GI/Abdominal- normal bowel sounds, soft, no mass, no hsm Skin- warm, dry Extremities Exam- normal capillary refill, normal inspection Neurological Exam- alert, awake, oriented. + Right sided weakness. + Slight right sided tremor. + right sided dysarthria Psych- normal mood, normal affect Discharge Plan - Discharge Medications Prescriptions: Aspirin [Aspirin Chewable] 81 mg PO DAILY #30 chew Atorvastatin [Lipitor] 80 mg PO HS #30 tab Clopidogrel [Plavix] 75 mg PO DAILY #30 tab Fluticasone Propionate [Flonase] 1 spr ELSIE BID #1 bottle Hydrocortisone 2.5% (Rectal) [Anusol-HC] 1 applic [place] BID PRN #10 tube PRN Reason: Hemorrhoids Losartan [Cozaar] 50 mg PO DAILY #30 tab Magnesium Hydroxide [Milk Of Magnesia] 30 ml PO DAILY PRN #1 bottle PRN Reason: Constipation Magnesium Oxide [Mag-Ox] 400 mg PO BID #20 tab Ondansetron HCl [Zofran] 4 mg PO Q8 PRN #20 tablet PRN Reason: Nausea/Vomiting Pantoprazole [Protonix EC Tab] 40 mg PO 0630 #30 ect Polyethylene Glycol/Polyvinyl [Artificial Tears] 2 drop OU HS PRN #1 bottle PRN Reason: Dry Eyes Sennosides A and B [Senokot Tab] 17.2 mg PO HS #30 tab Sertraline [Zoloft] 50 mg PO DAILY #30 tab Sodium Chloride Nasal [place] [[place] Nasal [place]] 2 sprays ELSIE Q4 PRN #1 bottle PRN Reason: Nasal Congestion Valproic Acid Cap [Depakene Cap] 500 mg PO Q12 #60 sgl - Follow Up Plan Condition: GOOD Disposition: HOME/ ROUTINE Instructions: Preventing Falls in the Older Adult, High Blood Pressure (DC), Stroke (DC), Hydrocortisone (Topical), Artificial Tears, Aspirin, Atorvastatin, Clopidogrel, Losartan, Magnesium Hydroxide, Magnesium Oxide, Ondansetron, Pantoprazole, Senna, Sertraline, Sodium Chloride, Valproic Acid and Derivatives , Fluticasone (Nasal)
== END 2018-04-24 13:20 | disposition home or self-care (01) | DRG 12 ==
PROVIDERS: ADMIT Internal Medicine; ATTEND Internal Medicine
PROC: F07Z9FZ Gait Training/Functional Ambulation Treatment using Assistive, Adaptive, Supportive or Protective Equipment (ICD-10-PCS; principal; 2018-04-09)
PROC: F06Z6MZ Communicative/Cognitive Integration Skills Treatment using Augmentative / Alternative Communication Equipment (ICD-10-PCS; 2018-04-09)
PROC: F08Z4FZ Home Management Treatment using Assistive, Adaptive, Supportive or Protective Equipment (ICD-10-PCS; 2018-04-09)
PROC: F07J6FZ Therapeutic Exercise Treatment of Musculoskeletal System - Head and Neck using Assistive, Adaptive, Supportive or Protective Equipment (ICD-10-PCS; 2018-04-10)
DX: I69.322 Dysarthria following cerebral infarction (principal); I69.392 Facial weakness following cerebral infarction; I69.351 Hemiplegia and hemiparesis following cerebral infarction affecting right dominant side; H49.22 Sixth [abducent] nerve palsy, left eye; H10.13 Acute atopic conjunctivitis, bilateral; F32.9 Major depressive disorder, single episode, unspecified; F41.9 Anxiety disorder, unspecified; I10 Essential (primary) hypertension; I25.10 Atherosclerotic heart disease of native coronary artery without angina pectoris; E78.5 Hyperlipidemia, unspecified; E78.00 Pure hypercholesterolemia, unspecified; J45.909 Unspecified asthma, uncomplicated; Z95.5 Presence of coronary angioplasty implant and graft